=== PATIENT | female | born 1965 | race Caucasian/White ===

== ENCOUNTER 2017-01-02 12:04 | Emergency (ER) | payer SELFPAY ==
[~2017-01-02] VITALS: Ht 157.5 cm; Wt 53.0 kg
[~2017-01-02 12:04] MED LIST: IBUP-1050 PO; ONDA4TAB10 SL
[2017-01-02 12:11] VITALS: TEMP 36.6; Ht 157.5 cm; Wt 53.0 kg
[2017-01-02 13:04] LABS: BASO % 0.6 %; BASO ABS # 0.03 K/uL (0-0.2); COMPLETE YES; EOS % 3.7 %; HEMATOCRIT 39.1 % (37-47); IG% 0.2 %; LYMPH % 47.6 %; LYMPH ABS # 2.42 K/uL (1.2-3.4); MEAN CELL VOLUME 84.1 fL (80-100); MEAN CORPUSCULAR HEMOGLOBIN 29.9 pg (25-34); MEAN CORPUSCULAR HGB CONC 35.5 g/dl (32-36); MEAN PLATELET VOLUME 11.2 fL (7.4-10.4); MONO % 5.7 %; NEUT % 42.2 %; PLATELET COUNT 220 K/uL (130-400); RED BLOOD COUNT 4.65 M/uL (4.2-5.4); WHITE BLOOD COUNT 5.08 K/uL (4.8-10.8)
[2017-01-02 13:05] LABS: PROTHROMBIN TIME (PATIENT) 10.7 SECONDS (9.0-12.0)
[2017-01-02 13:22] LABS: BUN/CREATININE RATIO 8.1 (10-20); CREATININE 0.84 mg/dl (0.60-1.20); POTASSIUM 3.9 mmol/L (3.5-5.1)
--- NOTE | 2017-01-02 13:47 | DIAGNOSTIC IMAGING REPORT ---
ABDOMINAL ULTRASOUND, RIGHT UPPER QUADRANT HISTORY: Epigastric pain.. COMPARISON: Right upper quadrant ultrasound April 12, [address] of the abdomen and pelvis April 13, 2015. FINDINGS: Liver is sonographically normal. There is no biliary ductal dilatation. No gallstones are identified. The pancreas is sonographically normal. There is no right hydronephrosis. IMPRESSION: No significant abnormality identified within the right upper quadrant. Electronically signed by: Kash Martinez M.D. 01/02/2017 1:45 PM Dictated Date/Time: 01/02/2017 1:44 PM
--- NOTE | 2017-01-02 13:50 | DIAGNOSTIC IMAGING REPORT ---
LEFT BREAST ULTRASOUND CLINICAL HISTORY: Left breast pain and burning. COMPARISON STUDY: No previous studies for comparison. FINDINGS: Sonography of the left breast revealed no mass or fluid collection. There were prominent ducts within the left breast at the 3:00 position. IMPRESSION: 1. No left breast abscess. No left breast mass identified by sonography. 2. Prominent ducts within the left breast at the 3:00 position, a nonspecific finding. Follow-up nonemergent diagnostic mammogram and ultrasound are recommended at the breast [facility]. Electronically signed by: Kash Martinez M.D. 01/02/2017 1:48 PM Dictated Date/Time: 01/02/2017 1:45 PM
--- NOTE | 2017-01-02 14:00 | DIAGNOSTIC IMAGING REPORT ---
CHEST 2 VIEWS ROUTINE HISTORY: Left-sided chest pain. COMPARISON: Chest 09/11/2016. FINDINGS: Stable calcified granuloma within the right lung apex. No pleural effusions. No pneumothorax. Cervical spinal fusion hardware. The left lung is clear. The heart is normal in size. IMPRESSION: No significant change compared to the prior study. No acute process. Electronically signed by: Chris Castro M.D. 01/02/2017 1:58 PM Dictated Date/Time: 01/02/2017 1:56 PM
[2017-01-02 14:15] VITALS: BP 108/74; PULSE 71; O2SAT 100
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
[2017-03-27] MEDS ORDERED: DIPH-437 PO (14:03)
== END 2017-01-02 14:17 | disposition home or self-care (01) ==
LOC: C.EDB 12:06 → C.EDC 14:17
DX: N64.4 Mastodynia (principal); R10.10 Upper abdominal pain, unspecified; G89.29 Other chronic pain; K21.9 Gastro-esophageal reflux disease without esophagitis; E87.6 Hypokalemia; Z83.3 Family history of diabetes mellitus; Z82.49 Family history of ischemic heart disease and other diseases of the circulatory system

== ENCOUNTER 2017-03-27 16:53 | Emergency (ER) | payer SELFPAY ==
[~2017-03-27] VITALS: Ht 162.6 cm; Wt 53.8 kg
[~2017-03-27 16:53] MED LIST changes: +DIPH-437 PO; -IBUP-1050 PO; -ONDA4TAB10 SL
[2017-03-27 16:59] VITALS: TEMP 36.8; Ht 162.6 cm; Wt 53.8 kg
[2017-03-27] MEDS ORDERED: RABIES VACCINE (IMOVAX) HUMAN DIPL CELL 2.5 INTER.UNIT/ML SYR IM. ONE (17:30)
[2017-03-27] MEDS ORDERED: RABIES IMMUNE GLOBULIN (HUMAN) 150 INTER.UNIT/ML 2 ML VIAL IM. ONE (17:30)
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
[2017-03-27] MEDS ORDERED: SERT25TA PO (18:23)
[2017-03-27 18:25] VITALS: BP 116/74; PULSE 61; O2SAT 98
== END 2017-03-27 18:26 | disposition home or self-care (01) ==
LOC: C.EDB 16:53 → C.EDD 18:26
DX: Z23 Encounter for immunization (principal); Z20.3 Contact with and (suspected) exposure to rabies; K21.9 Gastro-esophageal reflux disease without esophagitis; G89.29 Other chronic pain; Z90.710 Acquired absence of both cervix and uterus; Z87.440 Personal history of urinary (tract) infections; Z98.890 Other specified postprocedural states

== ENCOUNTER 2017-03-30 14:14 | Emergency (ER) | payer SELFPAY ==
[~2017-03-30] VITALS: Ht 162.6 cm; Wt 54.1 kg
[~2017-03-30 14:14] MED LIST changes: +SERT25TA PO
[2017-03-30 14:41] VITALS: TEMP 36.7; Ht 162.6 cm; Wt 54.1 kg
[2017-03-30] MEDS ORDERED: RABIES VACCINE (IMOVAX) HUMAN DIPL CELL 2.5 INTER.UNIT/ML SYR IM. ONE (15:00)
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
[2017-03-30 15:44] VITALS: BP 109/77; PULSE 66; O2SAT 99
== END 2017-03-30 15:45 | disposition home or self-care (01) ==
LOC: C.EDB 14:15 → C.EDD 15:45
DX: Z23 Encounter for immunization (principal); Z20.3 Contact with and (suspected) exposure to rabies

== ENCOUNTER 2017-08-17 15:35 | Emergency (ER) | payer SELFPAY ==
[~2017-08-17] VITALS: Ht 162.6 cm; Wt 55.8 kg
[2017-08-17 15:39] VITALS: TEMP 36.9; Ht 162.6 cm; Wt 55.8 kg
[2017-08-17] MEDS ORDERED: FENTANYL CITRATE INJ 50 MCG/1 ML 2 ML VIAL IV STA (16:03)
[2017-08-17 16:16] VITALS: O2SAT 100
[2017-08-17 16:16] LABS: BASO % 0.6 %; BASO ABS # 0.04 K/uL (0-0.2); COMPLETE YES; EOS % 2.9 %; HEMATOCRIT 40.6 % (37-47); IG% 0.1 %; LYMPH % 39.7 %; LYMPH ABS # 2.72 K/uL (1.2-3.4); MEAN CELL VOLUME 85.8 fL (80-100); MEAN CORPUSCULAR HEMOGLOBIN 29.6 pg (25-34); MEAN CORPUSCULAR HGB CONC 34.5 g/dl (32-36); MEAN PLATELET VOLUME 11.2 fL (7.4-10.4); MONO % 7.7 %; PLATELET COUNT 226 K/uL (130-400); RED BLOOD COUNT 4.73 M/uL (4.2-5.4); WHITE BLOOD COUNT 6.85 K/uL (4.8-10.8)
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
[2017-08-17 16:35] LABS: BUN/CREATININE RATIO 14.6 (10-20); CALCIUM 8.8 mg/dl (8.5-10.1); CREATININE 0.84 mg/dl (0.60-1.20); POTASSIUM 3.4 mmol/L (3.5-5.1)
--- NOTE | 2017-08-17 17:15 | DIAGNOSTIC IMAGING REPORT ---
CHEST 2 VIEWS ROUTINE CLINICAL HISTORY: 51 years-old Female presenting with CHEST PAIN. TECHNIQUE: PA and lateral views of the chest were obtained. COMPARISON: 01/02/2017. FINDINGS: Atherosclerosis of aortic arch. Cardiac silhouette normal in size. Unchanged nodular density in the right upper lobe near the apex likely calcified granuloma. No new focal infiltrate. No pleural effusion or pneumothorax. Cervical fusion hardware noted. Slight exaggeration of normal thoracic kyphosis without a focal compression deformity. Upper abdomen normal. IMPRESSION: 1. No acute cardiopulmonary disease. Electronically signed by: Abdirahman Michel M.D. 08/17/2017 5:14 PM Dictated Date/Time: 08/17/2017 5:13 PM
[2017-08-17] MEDS ORDERED: KETOROLAC TROMETHAMINE 30 MG/ML VIAL IV STA (18:05)
[2017-08-17 20:56] VITALS: BP 124/87; PULSE 66; O2SAT 98
== END 2017-08-17 20:55 | disposition home or self-care (01) ==
LOC: C.EDB 15:36 → C.EDA 20:55
DX: R07.89 Other chest pain (principal); K21.9 Gastro-esophageal reflux disease without esophagitis; G89.29 Other chronic pain; Z87.828 Personal history of other (healed) physical injury and trauma; Z87.440 Personal history of urinary (tract) infections; Z90.710 Acquired absence of both cervix and uterus; Z98.890 Other specified postprocedural states; Z83.3 Family history of diabetes mellitus; Z82.49 Family history of ischemic heart disease and other diseases of the circulatory system

== ENCOUNTER 2017-11-09 09:15 | Observation (INO) | payer BC ==
[~2017-11-09] VITALS: Ht 162.6 cm; Wt 54.3 kg
[2017-11-09] MEDS ORDERED: SODIUM CHLORIDE 0.9% 1000ML 1,000 ML IV SCH (09:48)
[2017-11-09 09:56] LABS: BASO % 0.5 %; BASO ABS # 0.03 K/uL (0-0.2); EOS % 2.3 %; EOS ABS # 0.15 K/uL (0-0.5); HEMATOCRIT 40.4 % (37-47); HEMOGLOBIN 14.1 g/dL (12.0-16.0); IG# 0.01 K/uL (0.00-0.02); LYMPH % 38.2 %; LYMPH ABS # 2.49 K/uL (1.2-3.4); MEAN CELL VOLUME 86.3 fL (80-100); MEAN CORPUSCULAR HEMOGLOBIN 30.1 pg (25-34); MEAN CORPUSCULAR HGB CONC 34.9 g/dl (32-36); MEAN PLATELET VOLUME 11.3 fL (7.4-10.4); MONO % 7.2 %; MONO ABS # 0.47 K/uL (0.11-0.59); NEUT % 51.6 %; NEUT ABS # 3.37 K/uL (1.4-6.5); PLATELET COUNT 215 K/uL (130-400); RED CELL DISTRIBUTION WIDTH CV 12.5 % (11.5-14.5); RED CELL DISTRIBUTION WIDTH SD 39.3 fL (36.4-46.3); WHITE BLOOD COUNT 6.52 K/uL (4.8-10.8)
--- NOTE | 2017-11-09 10:01 | DIAGNOSTIC IMAGING REPORT ---
CT HEAD WITHOUT CONTRAST (CT) CLINICAL HISTORY: Stroke COMPARISON STUDY: 07/16/2016 TECHNIQUE: Axial CT of the brain is performed from the vertex to the skull base. IV contrast was not administered for this examination. A dose lowering technique was utilized adhering to the principles of ALARA. CT DOSE: 537.48 mGy.cm FINDINGS: No intra or extra-axial mass lesions are visualized. There is no CT evidence of acute cortical infarction. There is no evidence of midline shift. There is no acute hemorrhage. No calvarial fractures are visualized. There is a stable punctate calcification within the left periventricular white matter There is no evidence of pathologic ventricular dilatation. There is no evidence of acute sinusitis IMPRESSION: No acute intracranial findings Electronically signed by: Arpit Arguelles M.D. 11/09/2017 10:00 AM Dictated Date/Time: 11/09/2017 9:58 AM
--- NOTE | 2017-11-09 10:11 | DIAGNOSTIC IMAGING REPORT ---
CHEST ONE VIEW PORTABLE CLINICAL HISTORY: Stroke COMPARISON STUDY: 08/17/2017 FINDINGS: The cardiac and mediastinal contours are normal. There is no evidence of focal pulmonary consolidation. There is no evidence of failure. No pleural effusions are visualized.[ There is a stable 6 mm right apical granuloma IMPRESSION: No active disease in the chest. Electronically signed by: Arpit Arguelles M.D. 11/09/2017 10:09 AM Dictated Date/Time: 11/09/2017 10:09 AM
[2017-11-09 10:13] LABS: BLOOD UREA NITROGEN 9 mg/dl (7-18); CALCIUM 9.1 mg/dl (8.5-10.1); CARBON DIOXIDE 29 mmol/L (21-32); CREATININE 0.81 mg/dl (0.60-1.20); GLUCOSE 71 mg/dl (70-99); POTASSIUM 3.5 mmol/L (3.5-5.1); SODIUM 143 mmol/L (136-145)
[2017-11-09] MEDS ORDERED: OPTIRAY 320 IV PRN (10:15)
[2017-11-09] MEDS ORDERED: DIPH-437 PO (10:30)
--- NOTE | 2017-11-09 10:49 | DIAGNOSTIC IMAGING REPORT ---
CT ANGIOGRAM OF THE BRAIN; CT ANGIOGRAM OF THE NECK CLINICAL HISTORY: Strokelike symptoms. COMPARISON STUDY: Unenhanced CT of the brain dated 11/09/2017. CT scan of the cervical spine dated 07/16/2016. Thyroid ultrasound dated 11/15/2013. TECHNIQUE: Following the IV administration of 120 of Optiray 320, CT angiogram of the head and neck was performed from the aortic arch to the vertex. Images are reviewed in the axial, sagittal, and coronal planes. 3-D MIPS images are created and assessed. IV contrast was administered without complication. All measurements were calculated based on NASCET criteria. A dose lowering technique was utilized adhering to the principles of ALARA. CT DOSE: 514.65 mGy.cm FINDINGS: Brain parenchyma: The brain parenchyma is normal in appearance. There is no hemorrhage, mass effect, or evidence of acute territorial ischemia by CT criteria. There is no evidence of enhancing mass lesion on these angiographic phase images. The ventricles, sulci, and cisterns are normal in configuration. Sánchez-white matter differentiation is preserved. No extra-axial fluid collection is seen. Thoracic aorta: Visualized portions of the thoracic aorta are normal in caliber. The aortic arch demonstrates standard 3-vessel anatomy. Right carotid arterial system: The right common carotid artery is widely patent, as are the right internal and external carotid arteries. Left carotid arterial system: The left common carotid artery is widely patent, as are the left internal and external carotid arteries. Vertebral arteries: Widely patent bilaterally and codominant. Subclavian arteries: Widely patent bilaterally. Intracranial vasculature: The internal carotid arteries are patent at the skull base, as are the anterior and middle cerebral arteries bilaterally. The vertebrobasilar system and posterior cerebral arteries are widely patent. The vertebral arteries are codominant. There is no aneurysm, high-grade stenosis, or focal vessel cut off seen throughout the intracranial circulation. Jugular veins: Widely patent bilaterally. Dural sinuses: Patent. Lung apices: Calcified granulomas are seen in the right upper lobe. Partially visualized upper lobe lung parenchyma otherwise appears clear. Soft tissues: The visualized pharyngeal soft tissues are normal in appearance noting angiographic phase technique. The oropharyngeal airway appears widely patent. Bilateral low-attenuation thyroid nodules measure up to 2.2 cm. The salivary glands are normal in appearance. No cervical lymphadenopathy is seen. Skeletal structures: The skeletal structures are osteopenic. The calvarium is within normal limits. The cervical spine appears intact noting multilevel spondylosis. Change from anterior fusion is seen at C4-C5. Sinuses and mastoids: The paranasal sinuses are clear. The mastoid air cells are well pneumatized. IMPRESSION: 1. There is no evidence of hemorrhage, mass effect, or acute territorial ischemia by CT criteria. 2. Unremarkable CT angiogram of the head. 3. Unremarkable CT angiogram of the neck. Electronically signed by: Mu Curtis M.D. 11/09/2017 10:47 AM Dictated Date/Time: 11/09/2017 10:39 AM
[2017-11-09] MEDS ORDERED: ASPIRIN 324 MG CHEW PO STA (10:58)
[2017-11-09] MEDS ORDERED: ACETAMINOPHEN 325 MG TAB PO PRN (11:15)
[2017-11-09] MEDS ORDERED: NITROGLYCERIN 0.4 MG SL PER TAB CHARGE SL PRN (11:15)
--- NOTE | 2017-11-09 11:26 | History and Physical ---
History & Physical Date & Time of Service: Nov 09, 2017 at 11:26 . Chief Complaint: dizzy, high blood pressure, left sided weakness and numbness, chest pain . Primary Care Physician: Abdirahman Petty M.D. History of Present Illness Source: patient, family, clinic records, hospital records 52-year-old female followed by Dr. Kendall. She enjoys relatively good health except for problems noted below. She has been feeling "dizzy" over the past few days. She denies vertigo or lightheadedness; states that her head feels funny and she has some left frontal pressure. Recent cold symptoms with nasal congestion, but no fever, pharyngitis, cough. Dizziness was worse this morning upon awakening. She went to work and continued to feel poorly. Her blood pressure was checked by a fellow employee and was noted to be 183/90. She felt confused and dialed a wrong phone number when she tried to call someone for help. Came to the ED for evaluation. Experienced some mild left-sided weakness and numbness. Her vision was blurred this morning; no diplopia. No other focal neurologic symptoms. Upon questioning, she also experienced some chest pain this morning. Chest pain described as left sided chest pressure associated with mild dyspnea. It did not radiate. No associated diaphoresis, nausea, vomiting. She did not take any medications for her symptoms. . Past Medical/Surgical History Medical Problems: Chronic low back pain Status: Chronic GERD (gastroesophageal reflux disease) Status: Chronic Surgical Problems: Status post appendectomy Status: Chronic Status post cervical spinal fusion Status: Chronic Status post hysterectomy Status: Chronic Status post Jeny fundoplication Status: Chronic . Family History FATHER Coronary artery disease MOTHER Cancer Diabetes mellitus BROTHER Coronary artery disease Social History Smoking Status: Never Smoker Alcohol Use: none Drug Use: none Marital Status: Housing status: lives with family Occupational Status: unemployed Immunizations History of Influenza Vaccine: Unknown History of Tetanus Vaccine?: Unknown History of Pneumococcal: Unknown History of Hepatitis B Vaccine: Unknown Hepatitis Immunization Date: Oct 17, 2010 Multi-Drug Resistant Organisms History of MDRO: No Allergies Coded Allergies: Morphine (Verified Allergy, Intermediate, RASH, 08/17/17) Nitroglycerin (Verified Adverse Reaction, Intermediate, SEVERELY LOW BLOOD PRESSURE, 11/09/17) Home Medications Scheduled Acetaminophen/Diphenhydramine (Tylenol Pm), 1 TAB PO HS Review of Systems Constitutional: + weight loss (patient uncertain of degree of weight loss), No fever Eyes: + problem reported (Blurred vision), No diplopia ENT: + problem reported (No vertical), No sore throat Respiratory: No cough, No shortness of breath Cardiovascular: + problem reported (As noted above in the HPI) Abdomen: No pain, No nausea, No vomiting, No diarrhea, No GI bleeding Musculoskeletal: + joint pain (Chronic back pain), No muscle pain Genitourinary - Female: No dysuria, No hematuria Neurologic: + memory loss, + numbness/tingling Endocrine: + excessive urination, No excessive thirst Hematologic / Lymphatic: + abnormal bleeding/bruising (Bruises easily), No swollen lymph nodes Integumentary: No rash, No new/changing skin lesions Physical Exam Vital Signs Date Time Temp Pulse Resp B/P (MAP) Pulse Ox O2 Delivery O2 Flow Rate FiO2 11/09/17 10:45 88 16 122/78 97 Room Air 11/09/17 10:35 92 18 127/78 98 Room Air 11/09/17 10:27 96 18 135/79 99 Room Air 11/09/17 10:09 92 18 143/83 96 Room Air 11/09/17 09:38 78 11/09/17 09:24 36.6 80 20 124/73 100 Room Air General Appearance: no apparent distress, + thin Head: normocephalic, atraumatic Eyes: normal inspection, PERRL, EOMI, sclerae normal, + pertinent finding ( Conjunctivae normal) ENT: normal ENT inspection, hearing grossly normal, pharynx normal, + pertinent finding (Upper and lower dentures) Neck: supple, no adenopathy, no carotid bruits, trachea midline, + thyroid abnormalities (Thyroid slightly enlarged, no nodules) Respiratory/Chest: lungs clear (To auscultation and percussion), no respiratory distress Cardiovascular: regular rate, rhythm, no edema, no gallop, no JVD, no murmur, normal peripheral pulses (Radial and pedal pulses intact and symmetric) Abdomen/GI: normal bowel sounds, non tender, soft, no organomegaly Extremities/Musculoskelatal: normal inspection, no calf tenderness 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 (PERRL, EOMI, no facial palsy, no dysarthria), no motor/sensory deficits (Motor strength upper and lower extremities 5/5 at time of my assessment), alert, + disoriented (Cannot state the year), + pertinent finding (Patellar DTRs hyperreflexic bilaterally; plantar reflexes downgoing) Skin: normal color, warm/dry Lymphatic: no adenopathy Diagnostics Laboratory Results Results Past 24 Hours Test 11/09/17 09:50 Range/Units White Blood Count 6.52 4.8-10.8 K/uL Red Blood Count 4.68 4.2-5.4 M/uL Hemoglobin 14.1 12.0-16.0 g/dL Hematocrit 40.4 37-47 % Mean Corpuscular Volume 86.3 80-100 fL Mean Corpuscular Hemoglobin 30.1 25-34 pg Mean Corpuscular Hemoglobin Concent 34.9 32-36 g/dl Platelet Count 215 130-400 K/uL Mean Platelet Volume 11.3 7.4-10.4 fL Neutrophils (%) (Auto) 51.6 % Lymphocytes (%) (Auto) 38.2 % Monocytes (%) (Auto) 7.2 % Eosinophils (%) (Auto) 2.3 % Basophils (%) (Auto) 0.5 % Neutrophils # (Auto) 3.37 1.4-6.5 K/uL Lymphocytes # (Auto) 2.49 1.2-3.4 K/uL Monocytes # (Auto) 0.47 0.11-0.59 K/uL Eosinophils # (Auto) 0.15 0-0.5 K/uL Basophils # (Auto) 0.03 0-0.2 K/uL RDW Standard Deviation 39.3 36.4-46.3 fL RDW Coefficient of Variation 12.5 11.5-14.5 % Immature Granulocyte % (Auto) 0.2 % Immature Granulocyte # (Auto) 0.01 0.00-0.02 K/uL Prothrombin Time 10.4 9.0-12.0 SECONDS Prothromb Time International Ratio 1.0 0.9-1.1 Activated Partial Thromboplast Time 24.0 21.0-31.0 SECONDS Partial Thromboplastin Ratio 0.9 Sodium Level 143 136-145 mmol/L Potassium Level 3.5 3.5-5.1 mmol/L Chloride Level 107 98-107 mmol/L Carbon Dioxide Level 29 21-32 mmol/L Anion Gap 6.0 3-11 mmol/L Blood Urea Nitrogen 9 7-18 mg/dl Creatinine 0.81 0.60-1.20 mg/dl Est Creatinine Clear Calc Drug Dose 70.2 ml/min Estimated GFR () 96.8 Estimated GFR (Non- 83.5 BUN/Creatinine Ratio 11.3 10-20 Random Glucose 71 70-99 mg/dl Calcium Level 9.1 8.5-10.1 mg/dl Magnesium Level 2.0 1.8-2.4 mg/dl Troponin I < 0.015 0-0.045 ng/ml Diagnostic Radiology Chest x-ray showed a stable 6 mm granuloma in the right apex, otherwise unremarkable. CT of head without contrast was negative. CT angiogram of intracranial and cervical vessels unremarkable. . EKG EKG performed at 0938 reviewed and demonstrated normal sinus rhythm at 76/minute , no acute ST or T-wave abnormalities. EKG performed at 1102 reviewed and demonstrated normal sinus rhythm at 82/minute , no acute ST or T-wave abnormalities. . Impression Assessment and Plan LEFT-SIDED WEAKNESS / PARESTHESIAE Neuro exam nonfocal at time of admission. CT head negative. CTA neck and intracranial vessels unremarkable. Check MRI brain and echo. Monitor for arrhythmias. Check lipid profile. ASA. 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 CHEST PAIN No acute EKG changes. Troponin in ED negative. Check serial troponins. VTE PROPHYLAXIS Low-moderate risk for VTE. SQ enoxaparin. Ambulate. DISPOSITION Expected discharge to home. Family Medicine follow-up with Dr. Kendall. . VTE Prophylaxis Risk Level: Moderate Given or contraindicated: Enoxaparin (Lovenox)SQ
[2017-11-09] MEDS ORDERED: PHARMACIST DISCHARGE MED REC CONSULT PRN (11:30)
[2017-11-09 12:06] VITALS: O2SAT 97; Ht 162.6 cm; Wt 54.3 kg
[2017-11-09 12:31] VITALS: O2SAT 98
[2017-11-09 13:00] VITALS: BP 129/84; PULSE 75; TEMP 36.7; O2SAT 99
[2017-11-09] MEDS ORDERED: LORAZEPAM 2 MG/ML 1 ML VIAL ONE (13:25)
[2017-11-09] MEDS ORDERED: ASPIRIN 81 MG CHEW PO ONE (13:30)
[2017-11-09] MEDS ORDERED: LORAZEPAM 2 MG/ML 1 ML VIAL IV PRN (13:30)
[2017-11-09] MEDS ORDERED: LORAZEPAM 2 MG/ML 1 ML VIAL IV ONE (13:30)
[2017-11-09] MEDS ORDERED: NURSING VERBAL MED ORDER ONE (13:30)
[2017-11-09] MEDS ORDERED: LORAZEPAM INJ 0.5 MG in SYRINGE 0.25 ML IV PRN (13:30)
[2017-11-09] MEDS ORDERED: LORAZEPAM INJ 0.5 MG in SYRINGE 0.25 ML IV ONE (13:30)
[2017-11-09] MEDS ORDERED: IV FLUIDS COMPLETED PRN (14:00)
--- NOTE | 2017-11-09 14:19 | DIAGNOSTIC IMAGING REPORT ---
MRI OF THE BRAIN WITHOUT CONTRAST CLINICAL HISTORY: left-sided weakness COMPARISON STUDY: CT scan dated 11/09/2017 FINDINGS: Sagittal T1, axial diffusion, proton density and T2 weighted axial, coronal FLAIR, and axial T1-weighted images were acquired. No intra or extra-axial mass lesions are visualized Axial diffusion-weighted images reveal no evidence of acute or subacute infarction. There is no evidence of ventricular dilatation. Proton density T2-weighted and FLAIR images reveal no significant intraparenchymal signal abnormalities. There are no abnormal flow voids. IMPRESSION: Normal MRI of the brain for age Electronically signed by: Arpit Arguelles M.D. 11/09/2017 2:18 PM Dictated Date/Time: 11/09/2017 2:14 PM
[2017-11-09 15:34] VITALS: BP 120/77; PULSE 70; TEMP 36.6; O2SAT 99
--- NOTE | 2017-11-09 15:38 | Neurology Consultation ---
Neurology Consultation Date of Consultation: Nov 09, 2017. Attending Physician: Norberto Richard MD Primary Care Physician: Abdirahman Petty M.D. Reason for Consultation: possible stroke History of Present Illness Source: patient, family, spouse Nancy is a 52 year old female with no significant PMH however she has not been to her PCP for years. She states about 7a this am she was at work and she started to feel dizzy, lightheaded and had left sided numbness, tingling and weakness, and blurred vision. According to her she was also confused because she tried calling her boss and called the wrong person then tried calling her and ended up call her son. 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 denies swallowing issues, current vision change, slurred speech, CP, SOB, abdominal pain, falls. family history of heart disease and HTN, children healthy, brother heart attack and HTN Past Medical/Surgical History Medical Problems: (1) Chronic low back pain Status: Chronic (2) Encounter for prophylactic administration of rabies immune globulin Status: Acute (3) Epigastric pain Status: Acute (4) GERD (gastroesophageal reflux disease) Status: Chronic (5) Left sided chest pain Status: Acute (6) Left-sided chest wall pain Status: Acute (7) Lumbar back pain Status: Acute (8) Mood disorder Status: Chronic (9) Rabies, need for prophylactic vaccination against Status: Acute (10) Rib injury Status: Acute (11) Upper respiratory infection Status: Acute Social History Smoking Status: Never smoker Alcohol Use: none Drug Use: none Marital Status: Housing Status: lives with family Occupation Status: unemployed Allergies Coded Allergies: Morphine (Verified Allergy, Intermediate, RASH, 08/17/17) Nitroglycerin (Verified Adverse Reaction, Intermediate, SEVERELY LOW BLOOD PRESSURE, 11/09/17) Current Inpatient Medications Current Inpatient Medications Medications (Trade) Dose Ordered Sig/Karen Route Start Time Stop Time Status Last Admin Dose Admin Ioversol (Optiray 320) 125 ml UD PRN IV 11/09/17 10:15 11/13/17 10:14 Enoxaparin Sodium (Lovenox Inj) 40 mg HS SC 11/09/17 21:00 12/09/17 20:59 Acetaminophen (Tylenol Tab) 650 mg Q4H PRN PO 11/09/17 11:15 12/09/17 11:14 Nitroglycerin (Nitrostat Tab) 0.4 mg UD PRN SL 11/09/17 11:15 12/09/17 11:14 Aspirin (Ecotrin Tab) 81 mg QAM PO 11/10/17 09:00 12/10/17 08:59 Miscellaneous Information (Pharmacist Discharge Med Rec Consult) 1 ea UD PRN N/A 11/09/17 11:30 12/09/17 11:29 Lorazepam (Ativan Inj) 0.5 mg TODAY PRN IV 11/09/17 13:30 11/09/17 23:59 11/09/17 14:06 0.5 MG Miscellaneous (Iv Fluids Completed) 1 ea PRN PRN N/A 11/09/17 14:00 11/09/18 13:59 Physical Exam Vital Signs (Past 24 Hrs): Date Time Temp Pulse Resp B/P (MAP) Pulse Ox O2 Delivery O2 Flow Rate FiO2 11/09/17 13:00 Room Air 11/09/17 13:00 36.7 75 16 129/84 (99) 99 Room Air 11/09/17 12:31 71 20 108/69 98 Room Air 11/09/17 12:06 97 Room Air 11/09/17 11:23 76 18 132/82 97 Room Air 11/09/17 10:45 88 16 122/78 97 Room Air 11/09/17 10:35 92 18 127/78 98 Room Air 11/09/17 10:27 96 18 135/79 99 Room Air 11/09/17 10:09 92 18 143/83 96 Room Air 11/09/17 09:38 78 11/09/17 09:24 36.6 80 20 124/73 100 Room Air Physical Exam: Constitutional: appearance nourished, healthy and normal Ears, Nose, Mouth and Throat: mucous membranes moist, no injection and skin normal, eyes normal Cardiovascular: normal S-1 and S-2 and regular rate and rhythm Respiratory: clear to auscultation (CTA) and no rales, rhonchi or wheeze Musculoskeletal: no peripheral edema and good distal pulses Skin: no stigmata of neurocutaneous disease noted and normal and intact Eyes: extraocular muscles intact (EOMI) and pupils equal, round and reactive to light (PERRL) NEUROLOGIC EXAMINATION: Mental status: Alert and interactive Oriented [facility], 2018 Oriented to person Speech slight dysarthria Cranial Nerves smile eye brow raise symmetric Reflexes: Deep tendon reflexes were symmetrical and graded 2/5. Plantar responses were flexor. Sensory: cool touch increased on LLE, vibration intact Coordination: finger to nose with no bi pass Gait/Stance: Posture normal. 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, hip flex 5/5, plantar flex ext 5/5 Laboratory Results Past 24 Hours: 11/09/17 09:50 Red Blood Count 4.68, Mean Corpuscular Volume 86.3, Mean Corpuscular Hemoglobin 30.1, Mean Corpuscular Hemoglobin Concent 34.9, Mean Platelet Volume 11.3, Neutrophils (%) (Auto) 51.6, Lymphocytes (%) (Auto) 38.2, Monocytes (%) (Auto) 7.2, Eosinophils (%) (Auto) 2.3, Basophils (%) (Auto) 0.5, Neutrophils # (Auto) 3.37, Lymphocytes # (Auto) 2.49, Monocytes # (Auto) 0.47, Eosinophils # (Auto) 0.15, Basophils # (Auto) 0.03 11/09/17 09:50 Test 11/09/17 09:50 White Blood Count 6.52 K/uL (4.8-10.8) Red Blood Count 4.68 M/uL (4.2-5.4) Hemoglobin 14.1 g/dL (12.0-16.0) Hematocrit 40.4 % (37-47) Mean Corpuscular Volume 86.3 fL (80-100) Mean Corpuscular Hemoglobin 30.1 pg (25-34) Mean Corpuscular Hemoglobin Concent 34.9 g/dl (32-36) Platelet Count 215 K/uL (130-400) Mean Platelet Volume 11.3 fL (7.4-10.4) Neutrophils (%) (Auto) 51.6 % Lymphocytes (%) (Auto) 38.2 % Monocytes (%) (Auto) 7.2 % Eosinophils (%) (Auto) 2.3 % Basophils (%) (Auto) 0.5 % Neutrophils # (Auto) 3.37 K/uL (1.4-6.5) Lymphocytes # (Auto) 2.49 K/uL (1.2-3.4) Monocytes # (Auto) 0.47 K/uL (0.11-0.59) Eosinophils # (Auto) 0.15 K/uL (0-0.5) Basophils # (Auto) 0.03 K/uL (0-0.2) RDW Standard Deviation 39.3 fL (36.4-46.3) RDW Coefficient of Variation 12.5 % (11.5-14.5) Immature Granulocyte % (Auto) 0.2 % Immature Granulocyte # (Auto) 0.01 K/uL (0.00-0.02) Prothrombin Time 10.4 SECONDS (9.0-12.0) Prothromb Time International Ratio 1.0 (0.9-1.1) Activated Partial Thromboplast Time 24.0 SECONDS (21.0-31.0) Partial Thromboplastin Ratio 0.9 Anion Gap 6.0 mmol/L (3-11) Est Creatinine Clear Calc Drug Dose 70.2 ml/min Estimated GFR () 96.8 Estimated GFR (Non- 83.5 BUN/Creatinine Ratio 11.3 (10-20) Calcium Level 9.1 mg/dl (8.5-10.1) Magnesium Level 2.0 mg/dl (1.8-2.4) Troponin I < 0.015 ng/ml (0-0.045) Imaging CT head - No acute intracranial findings CTA head and neck- . There is no evidence of hemorrhage, mass effect, or acute territorial ischemia by CT criteria. Unremarkable CT angiogram of the head. Unremarkable CT angiogram of the neck. MRI brain without-Normal MRI of the brain for age Impression 52 year old female with left sided weakness, numbness tingling, lightheaded Plan 1. MRI without no acute findings 2. CTA head and neck- no acute findings 3. TTE pending read 4. blood pressure in normal range 5. lipid profile -evaluation 6. over night observation 7. aspirin 81 mg started 8. further recommendations to follow I have seen and discussed above patient with Dr Oneyda Medina, neurology Pt seen and examined. Pt felt unwell this am, noted sparkly vision, head pressure, L weakness, numbness. Head pressure resolved, still with residual L weakness.MRI, CTA neg. Exam no abnl of cranial nerves, speech or language. Mild L arm weakness, poss L leg weakness, with L drift without pronation. perhaps min dec left NUBIA. There is decreased temperature sensation on the R arm and leg , but there is decreased PP in L arm and leg. Pt fails to identify the anesthetic hand with interlocked fingers. No dystaxia. Nml gait, arm swiing. Although this pt denies hx of migraine I suspect this is migrainous. TIA is within the differential and vascular mccall and antiplt tx are appropriate. There are non-physiologic features on exam. Will follow with you. CRISTIAN Medina MD
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
[2017-11-09] MEDS ORDERED: ASPIRIN 81 MG CHEW ONE (17:14)
[2017-11-09 19:17] VITALS: BP 96/61; PULSE 71; TEMP 36.7; O2SAT 99
[2017-11-09] MEDS ORDERED: ENOXAPARIN 40 MG/0.4 ML SYR SC SCH (21:00)
[2017-11-09 23:49] VITALS: BP 100/64; PULSE 60; TEMP 36.6; O2SAT 98
[2017-11-10 04:20] VITALS: BP 95/58; PULSE 60; TEMP 36.8; O2SAT 98
[2017-11-10 07:22] VITALS: BP 102/64; PULSE 72; TEMP 36.9; O2SAT 98
--- NOTE | 2017-11-10 08:26 | ECHOCARDIOGRAM REPORT ---
*NOTICE TO RECEIVING [facility] [facility] This information is strictly Confidential and protected under [place] law. [place] law prohibits you from making any further disclosure of this information unless further disclosure is expressly permitted by the written consent of the person to whom it pertains or is authorized by law. A general authorization for the release of medical or other information is not sufficient for this purpose. Hospital accepts no responsibility if the information is made available to any other person, INCLUDING THE PATIENT. Interpretation Summary * Name: MAXIMUS MCKINLEY Study Date: 11/09/2017 02:22 PM BP: 129/84 mmHg * Patient Location: .2T\S\S238\S\2 HR: 60 * : 1965 (M/d/yyyy) Gender: Female Height: 64 in * Age: 52 yrs Ethnicity: [place] Weight: 123 lb * Ordering Physician: Joselito Quach * Referring Physician: UNKNOWN * Performed By: Rebeka Cao RCS * * Reason For Study: STROKE LIKE SYMPTOMS * BSA: 1.6 m2 * -- Conclusions -- * Normal LV chamber size with mild concentric LVH. * Normal LV systolic function, EF 55-60%. * No segmental left ventricular wall motion abnormalities are noted. * Grade II diastolic dysfunction. * Mild tricuspid regurgitation. * Intact interatrial septum. Procedure Details * A complete two-dimensional transthoracic echocardiogram was performed (2D, M-mode, Doppler and color flow Doppler). * A saline contrast injection was performed to assess for cardiac shunting. * The injection was performed through an intravenous line in the right arm. * The attending nurse who injected the saline contrast was OREN RIVERA CPL, RN. * A total of 20 cc of agitated saline was given. Left Ventricle * The left ventricle is normal in size. * There is mild concentric left ventricular hypertrophy. * Left ventricular systolic function is normal. * No segmental left ventricular wall motion abnormalities are noted. * Ejection Fraction = 55-60%. * The left ventricular wall motion is normal. Right Ventricle * The right ventricular cavity size is normal (basal dimension <4.2 cm in right ventricular apical 4-chamber view). * The right ventricular systolic function is normal as assessed by tricuspid annular plane systolic excursion (TAPSE) (normal >1.5 cm). Atria * The left atrial size is normal. * Right atrial size is normal. * The interatrial septum is intact with no evidence for an atrial septal defect. Mitral Valve * The mitral valve is normal in structure and function. Tricuspid Valve * The tricuspid valve anatomy is normal. * There is no tricuspid stenosis. * There is mild tricuspid regurgitation. Aortic Valve * The aortic valve is normal in structure and function. Pulmonic Valve * The pulmonary valve is not well seen, but the Doppler examination is normal without significant regurgitation or stenosis. Great Vessels * The aortic root is normal size. Pericardium/Pleural * There is no pericardial effusion. Left Ventricular Diastolic Function * Diastolic dysfunction, Grade II (pseudonormalization pattern). MMode 2D Measurements and Calculations IVSd 1.0 cm IVSs 1.3 cm LVIDd 2.7 cm LVIDs 2.0 cm LVPWd 0.86 cm LVPWs 1.2 cm IVS/LVPW 1.2 FS 26.0 % EDV(Teich) 28.0 ml ESV(Teich) 13.2 ml EF(Teich) 53.0 % EDV(cubed) 20.5 ml ESV(cubed) 8.3 ml EF(cubed) 59.5 % % IVS thick 30.0 % % LVPW thick 34.5 % LV mass(C)d 64.6 grams LV mass(C)dI 40.6 grams/m\S\2 LV mass(C)s 68.8 grams LV mass(C)sI 43.3 grams/m\S\2 SV(Teich) 14.8 ml SI(Teich) 9.3 ml/m\S\2 SV(cubed) 12.2 ml SI(cubed) 7.7 ml/m\S\2 Ao root diam 2.7 cm Ao root area 5.7 cm\S\2 ACS 1.8 cm LA dimension 2.2 cm LA/Ao 0.82 LVOT diam 1.7 cm LVOT area 2.3 cm\S\2 LVAd ap4 23.7 cm\S\2 LVLd ap4 6.5 cm EDV(MOD-sp4) 67.3 ml EDV(sp4-el) 72.7 ml LVAs ap4 15.0 cm\S\2 LVLs ap4 5.4 cm ESV(MOD-sp4) 33.8 ml ESV(sp4-el) 35.0 ml EF(MOD-sp4) 49.7 % EF(sp4-el) 51.8 % LVAd ap2 25.7 cm\S\2 LVLd ap2 7.6 cm EDV(MOD-sp2) 70.9 ml EDV(sp2-el) 73.7 ml LVAs ap2 18.2 cm\S\2 LVLs ap2 6.7 cm ESV(MOD-sp2) 40.7 ml ESV(sp2-el) 42.0 ml EF(MOD-sp2) 42.5 % EF(sp2-el) 43.1 % LVLd %diff 14.2 % EDV(MOD-bp) 72.3 ml LVLs %diff 19.1 % ESV(MOD-bp) 41.3 ml EF(MOD-bp) 42.9 % SV(MOD-sp4) 33.5 ml SI(MOD-sp4) 21.0 ml/m\S\2 SV(MOD-sp2) 30.2 ml SI(MOD-sp2) 19.0 ml/m\S\2 SV(MOD-bp) 31.0 ml SI(MOD-bp) 19.5 ml/m\S\2 SV(sp4-el) 37.7 ml SI(sp4-el) 23.7 ml/m\S\2 SV(sp2-el) 31.8 ml SI(sp2-el) 20.0 ml/m\S\2 Doppler Measurements and Calculations MV E max sylvie 51.8 cm/sec MV A max sylvie 49.1 cm/sec MV E/A 1.1 MV P1/2t max sylvie 65.1 cm/sec MV P1/2t 100.3 msec MVA(P1/2t) 2.2 cm\S\2 MV dec slope 190.0 cm/sec\S\2 MV dec time 0.23 sec Ao V2 max 102.1 cm/sec Ao max PG 4.2 mmHg Ao max PG (full) 1.2 mmHg PAL(V,A) 1.9 cm\S\2 PAL(V,D) 1.9 cm\S\2 LV V1 max PG 3.0 mmHg LV V1 max 86.8 cm/sec PA V2 max 82.0 cm/sec PA max PG 2.7 mmHg TR max sylvie 206.6 cm/sec
[2017-11-10] MEDS ORDERED: ASPIRIN 81 MG ECTAB PO SCH (09:00)
[2017-11-10 09:09] LABS: HEMOGLOBIN A1C 5.3 % (4.5-5.6)
[2017-11-10 11:28] VITALS: BP 103/67; PULSE 66; TEMP 36.7; O2SAT 98
[2017-11-10] MEDS ORDERED: IBUPROFEN 600 MG TAB PO PRN (11:30)
[2017-11-10 14:57] VITALS: BP 115/73; PULSE 68; TEMP 36.5; O2SAT 98
--- NOTE | 2017-11-10 15:58 | Discharge Instructions ---
Discharge Instructions Date of Service Nov 10, 2017. Admission Reason for Admission: Stroke Like Symptoms Discharge Discharge Diagnosis / Problem: Headache, cva like symptoms Discharge Goals Goal(s): Decrease discomfort, Improve function Activity Recommendations Activity Limitations: resume your previous activity . Instructions / Follow-Up Instructions / Follow-Up FOLLOWUP WITH FAMILY DOCTOR ON Oct AT 2PM Current Hospital Diet Patient's current hospital diet: AHA Diet (Heart Healthy) Discharge Diet Recommended Diet: AHA Diet (Heart Healthy) Pending Studies Studies pending at discharge: no Laboratory Results Hemoglobin A1c Test 11/10/17 06:23 Range/Units Estimated Average Glucose 105 mg/dl Hemoglobin A1c 5.3 4.5-5.6 % Lipid Panel Test 11/10/17 06:23 Range/Units Triglycerides Level 123 0-150 mg/dl Cholesterol Level 195 0-200 mg/dl HDL Cholesterol 64 mg/dl Cholesterol/HDL Ratio 3.0 LDL Cholesterol, Calculated 106 mg/dl Work Instructions Return To Work: after follow-up (after followup on nov 13 2017.) Medical Emergencies . Who to Call and When: Medical Emergencies: If at any time you feel your situation is an emergency, please call 911 immediately. . Non-Emergent Contact Non-Emergency issues call your: Primary Care Provider . . "Provider Documentation" section prepared by Norberto Richard. . VTE Core Measure Inpt VTE Proph given/why not?: Enoxaparin (Lovenox)SQ
[2017-11-10 16:02] VITALS: BP 115/73; PULSE 68; TEMP 36.5; O2SAT 98
--- NOTE | 2017-11-10 16:16 | Neurology Progress Notes ---
Neurology Progress Note Date of Service Nov 10, 2017. Martha Cruz is a 52 year old female with no significant PMH however she has not been to her PCP for years. She states about 7a this am she was at work and she started to feel dizzy, lightheaded and had left sided numbness, tingling and weakness, and blurred vision. According to her she was also confused because she tried calling her boss and called the wrong person then tried calling her and ended up call her son. 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 denies swallowing issues, current vision change, slurred speech, CP, SOB, abdominal pain, falls. family history of heart disease and HTN, children healthy, brother heart attack and HTN Today she states she is still having a headache but it is mild and relieved with motrin. She is no longer having any weakness in arms or legs. Her vision has cleared. Objective Date Time Temp Pulse Resp B/P (MAP) Pulse Ox O2 Delivery O2 Flow Rate FiO2 11/10/17 16:02 36.5 68 18 98 Room Air 11/10/17 14:57 36.5 68 18 115/73 (87) 98 Room Air 11/10/17 12:00 Room Air 11/10/17 11:28 36.7 66 18 103/67 (79) 98 Room Air 11/10/17 08:00 Room Air 11/10/17 07:22 36.9 72 18 102/64 (77) 98 11/10/17 04:20 36.8 60 20 95/58 (70) 98 Room Air 11/10/17 04:00 Room Air 11/10/17 00:02 Room Air 11/09/17 23:49 36.6 60 20 100/64 (76) 98 Room Air 11/09/17 20:00 Room Air 11/09/17 19:17 36.7 71 16 96/61 (73) 99 Room Air Last 24 Hours Test 11/09/17 22:12 11/10/17 06:23 Troponin I < 0.015 ng/ml Estimated Average Glucose 105 mg/dl Hemoglobin A1c 5.3 % Triglycerides Level 123 mg/dl Cholesterol Level 195 mg/dl HDL Cholesterol 64 mg/dl LDL Cholesterol, Calculated 106 mg/dl VLDL Cholesterol, Calculated 25 mg/dl Cholesterol/HDL Ratio 3.0 Imaging: MRI brain- : Normal MRI of the brain for age Exam: Gen: alert NAD PERRLA, EOMI lungs CTA CV RRR no pronator drift bilaterally strength 5/5 bilaterally hand ux consultant biceps triceps, hip flex plantar flex ext finger to nose with no bi pass Current Inpatient Medications Medications (Trade) Dose Ordered Sig/Karen Route Start Time Stop Time Status Last Admin Dose Admin Ioversol (Optiray 320) 125 ml UD PRN IV 11/09/17 10:15 11/13/17 10:14 Enoxaparin Sodium (Lovenox Inj) 40 mg HS SC 11/09/17 21:00 12/09/17 20:59 11/09/17 19:55 40 MG Acetaminophen (Tylenol Tab) 650 mg Q4H PRN PO 11/09/17 11:15 12/09/17 11:14 11/10/17 08:50 650 MG Nitroglycerin (Nitrostat Tab) 0.4 mg UD PRN SL 11/09/17 11:15 12/09/17 11:14 Aspirin (Ecotrin Tab) 81 mg QAM PO 11/10/17 09:00 12/10/17 08:59 11/10/17 08:49 81 MG Miscellaneous (Iv Fluids Completed) 1 ea PRN PRN N/A 11/09/17 14:00 11/09/18 13:59 Ibuprofen (Motrin Tab) 600 mg TID PRN PO 11/10/17 11:30 12/10/17 11:29 11/10/17 13:09 600 MG Impression 52 year old female with left sided weakness, numbness tingling, lightheaded Plan 1. MRI without no acute findings 2. CTA head and neck- no acute findings 3. TTE pending read 4. blood pressure in normal range 5. lipid profile -evaluation 6. over night observation 7. aspirin 81 mg started 8. TIA vs acephalic migraine, would continue aspirin 81 mg and follow up with PCP for further evaluate for medical management. There were some non pathologic findings on exam. follow up with neurology in 2-3 weeks Oneyda Thrasher PAC schedule ok from neurology perspective to discharge to home I have seen and discussed above patient with Dr Oneyda Medina, neurology PT dced, suspect complicated migrainous phenomenon, vs TIA, noting there were nonphysiologic features on exam. Agree with antiplt tx with asa. Will see pt in follow-up. If pt still with neurologic deficit would consider repeat MRI, further work-up, CRISTIAN Medina MD
--- NOTE | 2017-11-10 19:02 | Progress Note ---
Internal Med Progress Note Date of Service: Nov 10, 2017. Provider Documentation: SUBJECTIVE: ambulating ok eating ok has some headache relieved by Motrin wants to go home afebrile OBJECTIVE: Vital Signs-as noted below Exam: General-alert and oriented. Not in distress ENT-normal hearing Neck-no neck masses Lungs-cta b/l no wheezing or crackles Heart-s1 and s2 heard regular rate and rhythm no murmurs Abdomen-soft bowel sounds present non tender no distension Extremities-no edema no erythema Neuro-alert and awake moves extremities non focal Lab data as noted below. ASSESSMENT & PLAN: LEFT-SIDED WEAKNESS / PARESTHESIAE Neuro exam nonfocal at time of admission. CT head negative. CTA neck and intracranial vessels unremarkable. MRI brain unremarkable echo mild lvh and grade 2 diastolic dysfunction otherwise unremarkable ldl 106, hdl 64 appreciate neuro input migraine vs tia neurology advice to d/c on aspirin and followup with neuro in 2-3 weeks CHEST PAIN No acute EKG changes. Troponin in ED negative. negative serial troponin echo normal ef and no wall motion abnormalities asymptomatic today. discharged home Vital Signs: Date Time Temp Pulse Resp B/P (MAP) Pulse Ox O2 Delivery O2 Flow Rate FiO2 11/10/17 16:02 36.5 68 18 98 Room Air 11/10/17 14:57 36.5 68 18 115/73 (87) 98 Room Air 11/10/17 12:00 Room Air 11/10/17 11:28 36.7 66 18 103/67 (79) 98 Room Air 11/10/17 08:00 Room Air 11/10/17 07:22 36.9 72 18 102/64 (77) 98 11/10/17 04:20 36.8 60 20 95/58 (70) 98 Room Air 11/10/17 04:00 Room Air 11/10/17 00:02 Room Air 11/09/17 23:49 36.6 60 20 100/64 (76) 98 Room Air 11/09/17 20:00 Room Air 11/09/17 19:17 36.7 71 16 96/61 (73) 99 Room Air Lab Results: Results Past 24 Hours Test 11/09/17 22:12 11/10/17 06:23 Range/Units Troponin I < 0.015 0-0.045 ng/ml Estimated Average Glucose 105 mg/dl Hemoglobin A1c 5.3 4.5-5.6 % Triglycerides Level 123 0-150 mg/dl Cholesterol Level 195 0-200 mg/dl HDL Cholesterol 64 mg/dl LDL Cholesterol, Calculated 106 mg/dl VLDL Cholesterol, Calculated 25 mg/dl Cholesterol/HDL Ratio 3.0
[2017-11-10] MEDS ORDERED: ASPEC81 PO (19:03)
--- NOTE | 2017-11-10 19:06 | Discharge Summary ---
Discharge Summary Date of Service Nov 10, 2017. Discharge Summary Admission Date: Nov 09, 2017 at 11:36 Discharge Date: Nov 10, 2017 Discharge Disposition: Home Principal Diagnosis: migraine vs tia Secondary Diagnoses/Problems: Chronic low back pain Status: Chronic GERD (gastroesophageal reflux disease) Status: Chronic Procedures: CT HEAD: No acute intracranial findings CXR: No active disease in the chest. CTA HEAD/NECK: 1. There is no evidence of hemorrhage, mass effect, or acute territorial ischemia by CT criteria. 2. Unremarkable CT angiogram of the head. 3. Unremarkable CT angiogram of the neck. BRAIN MRI: Normal MRI of the brain for age ECHO: Normal LV chamber size with mild concentric LVH. * Normal LV systolic function, EF 55-60%. * No segmental left ventricular wall motion abnormalities are noted. * Grade II diastolic dysfunction. * Mild tricuspid regurgitation. * Intact interatrial septum. Consultations: NEUROLOGY Medication Reconciliation New Medications: Aspirin (Aspirin EC Low Dose) 81 Mg Ectab 81 MG PO DAILY for 30 Days, #30 TAB 1 Refill Continued Medications: Acetaminophen/Diphenhydramine (Tylenol Pm) 500 Mg/25 Mg Tab 1 TAB PO HS, TAB Admission Information HPI (per Admitting provider): 52-year-old female followed by Dr. Kendall. She enjoys relatively good health except for problems noted below. She has been feeling "dizzy" over the past few days. She denies vertigo or lightheadedness; states that her head feels funny and she has some left frontal pressure. Recent cold symptoms with nasal congestion, but no fever, pharyngitis, cough. Dizziness was worse this morning upon awakening. She went to work and continued to feel poorly. Her blood pressure was checked by a fellow employee and was noted to be 183/90. She felt confused and dialed a wrong phone number when she tried to call someone for help. Came to the ED for evaluation. Experienced some mild left-sided weakness and numbness. Her vision was blurred this morning; no diplopia. No other focal neurologic symptoms. Upon questioning, she also experienced some chest pain this morning. Chest pain described as left sided chest pressure associated with mild dyspnea. It did not radiate. No associated diaphoresis, nausea, vomiting. She did not take any medications for her symptoms. . Physical Exam (per Admitting): General Appearance: no apparent distress, + thin Head: normocephalic, atraumatic Eyes: normal inspection, PERRL, EOMI, sclerae normal, + pertinent finding ( Conjunctivae normal) ENT: normal ENT inspection, hearing grossly normal, pharynx normal, + pertinent finding (Upper and lower dentures) Neck: supple, no adenopathy, no carotid bruits, trachea midline, + thyroid abnormalities (Thyroid slightly enlarged, no nodules) Respiratory/Chest: lungs clear (To auscultation and percussion), no respiratory distress Cardiovascular: regular rate, rhythm, no edema, no gallop, no JVD, no murmur , normal peripheral pulses (Radial and pedal pulses intact and symmetric) Abdomen/GI: normal bowel sounds, non tender, soft, no organomegaly Extremities/Musculoskelatal: normal inspection, no calf tenderness Neurologic/Psych: train brakeman II-XII nml as tested (PERRL, EOMI, no facial palsy, no dysarthria), no motor/sensory deficits (Motor strength upper and lower extremities 5/5 at time of my assessment), alert, + disoriented (Cannot state the year), + pertinent finding (Patellar DTRs hyperreflexic bilaterally; plantar reflexes downgoing) Skin: normal color, warm/dry Lymphatic: no adenopathy Hospital Course LEFT-SIDED WEAKNESS / PARESTHESIAE Neuro exam nonfocal at time of admission. CT head negative. CTA neck and intracranial vessels unremarkable. MRI brain unremarkable echo mild lvh and grade 2 diastolic dysfunction otherwise unremarkable ldl 106, hdl 64 appreciate neuro input migraine vs tia neurology advice to d/c on aspirin and followup with neuro in 2-3 weeks CHEST PAIN No acute EKG changes. Troponin in ED negative. negative serial troponin echo normal ef and no wall motion abnormalities asymptomatic today. discharged home Total time spent on discharge = 35MINUTES This includes examination of the patient, discharge planning, medication reconciliation, and communication with other providers. Discharge Instructions Discharge Instructions Date of Service Nov 10, 2017. Admission Reason for Admission: Stroke Like Symptoms Discharge Discharge Diagnosis / Problem: Headache, cva like symptoms Discharge Goals Goal(s): Decrease discomfort, Improve function Activity Recommendations Activity Limitations: resume your previous activity . Instructions / Follow-Up Instructions / Follow-Up FOLLOWUP WITH FAMILY DOCTOR ON Oct AT 2PM Current Hospital Diet Patient's current hospital diet: AHA Diet (Heart Healthy) Discharge Diet Recommended Diet: AHA Diet (Heart Healthy) Pending Studies Studies pending at discharge: no Laboratory Results Hemoglobin A1c Test 11/10/17 06:23 Range/Units Estimated Average Glucose 105 mg/dl Hemoglobin A1c 5.3 4.5-5.6 % Lipid Panel Test 11/10/17 06:23 Range/Units Triglycerides Level 123 0-150 mg/dl Cholesterol Level 195 0-200 mg/dl HDL Cholesterol 64 mg/dl Cholesterol/HDL Ratio 3.0 LDL Cholesterol, Calculated 106 mg/dl Work Instructions Return To Work: after follow-up (after followup on nov 13 2017.) Medical Emergencies . Who to Call and When: Medical Emergencies: If at any time you feel your situation is an emergency, please call 911 immediately. . Non-Emergent Contact Non-Emergency issues call your: Primary Care Provider . . "Provider Documentation" section prepared by Norberto Richard. . VTE Core Measure Inpt VTE Proph given/why not?: Enoxaparin (Lovenox)SQ
== END 2017-11-10 17:00 | disposition home or self-care (01) ==
LOC: C.EDB 09:16 → C.2T 11:36 → ENRESERV 11:45
PROVIDERS: ADMIT Hospitalist; ATTEND Internal Medicine
DX: R51 Headache (principal); R53.1 Weakness; R20.0 Anesthesia of skin; R07.9 Chest pain, unspecified; K21.9 Gastro-esophageal reflux disease without esophagitis; Z88.5 Allergy status to narcotic agent; Z90.49 Acquired absence of other specified parts of digestive tract; Z98.1 Arthrodesis status; Z90.710 Acquired absence of both cervix and uterus; Z87.440 Personal history of urinary (tract) infections; Z82.49 Family history of ischemic heart disease and other diseases of the circulatory system; Z83.3 Family history of diabetes mellitus

== ENCOUNTER → 2018-05-13 | Outpatient (CLI) | payer BC ==
[~2018-05-13] MED LIST changes: +ASPI-320 PO; -SERT25TA PO
--- NOTE | 2018-05-13 12:48 | DIAGNOSTIC IMAGING REPORT ---
VIDEO SWALLOW CLINICAL HISTORY: Dysphagia. Globus sensation. COMPARISON STUDY: Upper GI series December 31, 2016. Fluoroscopy time: 1.7 minutes. FINDINGS: Cine fluoroscopy was performed. Note is made of an anterior cervical spine discectomy and fusion. There was no aspiration with thin liquids, nectar thick liquids, pudding or crackers with paste. Swallowing mechanism was intact. Laryngeal elevation and epiglottic inversion were normal. IMPRESSION: 1. Intact swallowing mechanism. No tracheal aspiration. 2. Full recommendations by speech pathology to follow. Electronically signed by: Kash Martinez M.D. 05/13/2018 12:47 PM Dictated Date/Time: 05/13/2018 12:45 PM
--- NOTE | 2018-05-13 15:23 | SWALLOWING EVALUATION ---
HISTORY: This 52 year old woman was referred for a video swallow study at [facility] in order to rule out aspiration and identify the safest consistencies for optimal oral intake. The patient is reporting some swallowing difficulty where a globus sensation is noted and often feels as though food can become stuck in her throat. She will take a drink to help clear this sensation. She reports having the most difficulty swallowing breads and red meats such as steak, and that she feels full quickly. PMH is significant for: Abdominal pain, chronic back pain, GERD, dizziness, stroke like symptoms, and mood disorder. Previous Upper GI completed in 12/2016 (please refer to full report for details) noted a narrowed gastroesophageal junction. The patient reported she had hiatal hernia repair in the past as well as surgery to the cervical spine. Current diet is regular. PROCEDURE: The patient was seen in the Radiology Department of [facility] for the VFSS. Cursory examination of the oral cavity revealed the patient to have upper and lower dentition in good condition. Strength and ROM of the articulators was wnl. The patient was seated upright on a stool and was viewed in the Lateral and the Anterior-Posterior (A-P) planes. Volitional phonation exercises completed in the A-P plane revealed bilateral vocal fold movement. Vocal intensity was wnl. In the lateral plane, the patient was given the following boluses: 1 tsp. thin liquid barium x 2, single swallow thin liquid barium self-presented from a cup, serial swallows of thin liquid barium self-presented via straw, 1 tsp. nectar-thick liquid barium, single swallow nectar-thick liquid barium self-presented from a cup, 1 tsp. barium pudding, and 1/2 club cracker coated in barium pudding. The patient was then repositioned into the A-P plane and given the following boluses: 1 tsp. barium pudding. RESULTS: Oral Stage: Lip closure was adequate. The patient was able to maintain a cohesive liquid bolus in the oral cavity during the liquid bolus hold task. Mastication was timely and efficient. Lingual motion for bolus transport was brisk. There was retention lining the tongue and palate after the initial swallow. The initiation of the pharyngeal swallow was delayed and occurred when the bolus head reached the pyriforms. Pharyngeal Stage: Soft palate elevation was complete. Laryngeal elevation revealed complete superior movement of the thyroid cartilage with complete approximation of the arytenoids to the epiglottic base. Anterior hyoid excursion was partially reduced. Epiglottic deflection was complete. Laryngeal vestibular closure was complete. The pharyngeal stripping wave was present and complete. Pharyngeal contraction was complete. There was partial distention and duration of the opening to the pharyngoesophageal segment (PES). Tongue base retraction was partially reduced with a trace column of contrast located between the tongue base and pharyngeal wall during the swallow. There was trace retention located in the valleculae and pyriforms after the swallow. There was no evidence of laryngeal penetration or aspiration for this study. The patient did not have any significant retention present in the pharynx after the swallow was complete. Esophageal stage: There was mild retention in the mid esophagus. A liquid wash did not assist to clear this. Of note, the hardware present appeared to impinge slightly into the upper esophagus. There was also a noted prominent cricopharyngeus. While all bolus were able to pass through this area, transit was slowed and this is suspected to be contributing to the patient's reports of retention and globus sensation while eating. These findings overall are suggestive of esophageal dysmotility. SUMMARY/RECOMMENDATIONS: This patient presents with normal oropharyngeal swallowing mechanics. She presents with s/s of esophageal dysfunction. The following is recommended: 1. Regular diet "SLIPPERY", thin liquids. Choose foods that are moist, loose, slippery; avoid foods that are doughy, thick, dry (e.g., soft breads, thick meat, etc.). Add condiments to foods such as sauce or gravy to assist in keeping foods moist 2. Aspiration and GERD precautions: FULLY UPRIGHT for meals and for 30 minutes after meals; head of bed at least 30-degrees at all times. Straws OK. 3. Safe swallow strategies: Rest breaks during meals. Small frequent meals. Alternate solids and liquids as needed. 4. Consider follow up with a GI specialist for management for suspected esophageal dysfunction (medication adjustments, further testing as needed) as appropriate. A summary of the results and recommendations was discussed with the patient immediately following the study with verbal understanding. Also provided both written and verbal information regarding a "slippery" diet with verbal understanding to this. Thank you for referral of this patient. Please contact me at if any additional information is needed.
== END | disposition home or self-care (01) ==
LOC: C.RAD 11:04
PROVIDERS: ATTEND Otolaryngology
DX: R13.10 Dysphagia, unspecified (principal); E04.2 Nontoxic multinodular goiter; K22.4 Dyskinesia of esophagus

== ENCOUNTER 2020-02-08 10:08 | Observation (INO) ==
[2020-02-08] MEDS ORDERED: KETOROLAC TROMETHAMINE 15 MG/ML VIAL IV STA (10:25)
[2020-02-08] MEDS ORDERED: SODIUM CHLORIDE 0.9% 1000ML 1,000 ML IV ONE (10:25)
[2020-02-08] MEDS ORDERED: ONDANSETRON INJ 2 MG/ML 2 ML VIAL IV STA (10:25)
--- NOTE | 2020-02-08 10:30 | Emergency Department Note ---
Impression & Plan RUQ abdominal pain, Diarrhea, Nausea ED Provider Note NAME: MAXIMUS MCKINLEY AGE: 54 SEX: F : 1965 ARRIVES VIA: Walk-In INFORMANT: [Patient] ED PROVIDER(S): [Mu Merritt MD] CHIEF COMPLAINT: Right upper quadrant abdominal pain HISTORY OF PRESENT ILLNESS: The patient is a 54-year-old female who presents to the ER with right upper quadrant abdominal pain since yesterday toward the latter half of the day. The patient states the pain was mild yesterday and seemed to get better with a little bit of diarrhea. This morning, the pain was mild. About 2.5 hours ago, the pain became more severe and she now rates it as a 7/10. It is constant and radiates to the back. Eating makes it slightly worse, sitting still makes it better. She has had nausea no vomiting. No more diarrhea. No cough or cold or shortness of breath. She has not had fever. There has been no trauma. Of note, the patient has had an appendectomy and hysterectomy. She also has had some hiatal hernia surgery. She still has her gallbladder. REVIEW OF SYSTEMS: See HPI for pertinent positives and negatives. A total of ten systems were reviewed and were otherwise negative. PMHx/PSHx: See Below SOCIAL HISTORY: See Below. PHYSICAL EXAM: GENERAL: Patient is in no acute distress. HEENT: No acute trauma, normocephalic atraumatic, mucous membranes moist, no nasal congestion, no scleral icterus. NECK: No stridor, no adenopathy, no meningismus, trachea is midline. LUNGS: Clear to auscultation bilaterally, no wheeze, no rhonchi, breath sounds equal. HEART: Without murmurs gallops or rubs, regular rate and rhythm. ABDOMEN: Soft, moderately tender in the right upper quadrant and epigastrium, no peritonitis, no obvious hernia. EXTREMITIES: No cyanosis or edema, full range of motion of all the joints without pain or difficulty, no signs for acute trauma. NEUROLOGIC: Oriented x 3, no acute motor or sensory deficits, no focal weakness. SKIN: No rash, no jaundice, no diaphoresis. DIFFERENTIAL DIAGNOSIS: Ovarian cyst, ovarian torsion, ectopic , TOA, PID, infections, diverticulitis, UTI, obstruction, mesenteric ischemia, aortic pathology, inflammatory bowel disease, renal colic, PUD, pancreatitis, biliary pathology, hernia, volvulus, constipation, as well as other pathologies. EMERGENCY DEPARTMENT COURSE/PROCEDURES: Continuous Cardiac Monitoring: An order was placed for continuous cardiac monitoring. The monitor shows a rate of 69 with normal sinus rhythm. MEDICAL DECISION MAKING: There is no leukocytosis or concerning anemia. No significant electrolyte abnormality or kidney failure. No concerning liver enzyme elevation. No evidence for pancreatitis. Urinalysis did not show hematuria or infection. Cardiac troponin testing did not show any evidence for cardiac ischemia. Chest film did not show pneumonia or free air. Gallbladder ultrasound showed some gallbladder sludge, no fluid around the gallbladder, no ductal dilatation. Abdominal and pelvis CT showed some chronic findings, no acute surgical process by CT scan. On my exam, the patient was not toxic or febrile. She was tender in the right upper quadrant. The patient received IV Toradol, IV Zofran and IV saline. She eventually received IV Dilaudid for pain. I did speak with general surgery. They evaluated the patient in the ED. They did not think acute surgical intervention was required. I talked to the patient further about options, she is too uncomfortable to be discharged home. I did speak with case management, the on-call hospitalist has been consulted. The patient will be watched overnight in the hospital. She will have general surgery following along as a consult. For now, surgery has recommended a HIDA scan. At this point, the cause for her pain is unclear but does potentially seem consistent with biliary colic. Past Med/Surg History Medical History Abdominal pain (Acute) Depression Dizziness (Acute) GERD (gastroesophageal reflux disease) (Chronic) History of hypothyroidism Stroke-like symptoms (Acute) Thyroid cancer Surgical History History of total abdominal hysterectomy and bilateral salpingo-oophorectomy Hx of thyroidectomy Hx of tonsillectomy S/P section Status post appendectomy (Chronic) Status post cervical spinal fusion (Chronic) Status post Jeny fundoplication (Chronic) Family History Mother Diabetes Family/Other Colorectal cancer niece- dx age 27 Hypertension Heart disease Denies family history of Ovarian cancer Breast cancer Uterine cancer Social History Preferred Language: Arabic Communication Ability: Effective Clearance Coordinator Required: No Beliefs That Will Affect Care: None marital status: Current Living Situation: Spouse current occupational status: employed Other Information That Helps Us Care for You: No Feels Safe at Home: Yes Safety Concerns: Feels Safe At This Time Smoking Status: Never smoker Hx Alcohol Use: No Hx Substance Use: No Allergies Allergies Allergy/AdvReac Type Severity Reaction Status Date / Time morphine Allergy Intermediate RASH Verified 02/08/20 10:56 nitroglycerin AdvReac Intermediate SEVERELY Verified 02/08/20 10:56 LOW BLOOD PRESSURE Home Meds Home Medications Medication Instructions Recorded Confirmed omeprazole 20 mg PO DAILY 05/26/18 02/08/20 diphenhydramine-acetaminophen 1 tab PO HS PRN 02/08/20 02/08/20 [Tylenol PM Extra Strength] duloxetine 20 mg PO PM 02/08/20 02/08/20 levothyroxine 75 mcg PO DAILY 02/08/20 02/08/20 Results & Data (ED) Vital Signs Vital Signs - 24 hr 02/08/20 10:11 02/08/20 10:57 02/08/20 13:05 Temperature 36.8 C Temperature Source Oral Pulse Rate 73 Pulse Rate [Finger] 57 L 69 Pulse Rhythm Regular Pulse Strength Normal Respiratory Rate 18 18 24 Respiratory Effort / Characteristics Non-Labored Respiratory Depth Normal Respiratory Pattern Regular Blood Pressure 120/83 Blood Pressure [Left Arm] 133/80 126/78 Blood Pressure Mean 95 Blood Pressure Mean [Left Arm] 97 94 Blood Pressure Position Sitting Pulse Oximetry 100 100 99 Oxygen Delivery Method Room Air Room Air Room Air Sepsis Recent Fever Within 48 Hours No Sepsis Action Taken by Nursing No Action Required Home Medications Current Medication List: was personally reviewed by me Laboratory Data Attestation: I reviewed the patient's lab results. Result diagrams: 02/08/20 10:29 02/08/20 10:29 Lab Results 02/08/20 02/08/20 02/08/20 Range/Units 10:29 10:29 10:35 WBC 5.09 (4.8-10.8) K/uL RBC 4.44 (4.2-5.4) M/uL Hgb 13.0 (12.0-16.0) g/dL Hct 38.2 (37-47) % MCV 86.0 (80-100) fL MCH 29.3 (25-34) pg MCHC 34.0 (32-36) g/dL RDW Std Deviation 39.4 (36.4-46.3) fL RDW Coeff of Liyah 12.5 (11.5-14.5) % Plt Count 213 (130-400) K/uL MPV 11.0 H (7.4-10.4) fL Immature Gran % (Auto) 0.0 % Neut % (Auto) 37.1 % Lymph % (Auto) 51.1 % Tillman % (Auto) 8.8 % Eos % (Auto) 2.6 % Baso % (Auto) 0.4 % Immature Gran # (Auto) 0.00 (0.00-0.02) K/uL Neut # (Auto) 1.89 (1.4-6.5) K/uL Lymph # (Auto) 2.60 (1.2-3.4) K/uL Tillman # (Auto) 0.45 (0.11-0.59) K/uL Eos # (Auto) 0.13 (0-0.5) K/uL Baso # (Auto) 0.02 (0-0.2) K/uL Sodium 142 (136-145) mmol/L Potassium 3.7 (3.5-5.1) mmol/L Chloride 110 H (98-107) mmol/L Carbon Dioxide 28 (21-32) mmol/L Anion Gap 4.0 (3-11) BUN 10 (7-18) mg/dl Creatinine 0.75 (0.6-1.2) mg/dl Est Cr Clr Drug Dosing 67.8 ml/min Est GFR ( Amer) 104.7 Est GFR (Non-Af Amer) 90.4 BUN/Creatinine Ratio 13.2 (10-20) Glucose 88 (70-99) mg/dl Calcium 8.0 L (8.5-10.1) mg/dl Total Bilirubin 0.9 (0.2-1) mg/dl AST 20 (15-37) U/L ALT 22 (12-78) U/L Alkaline Phosphatase 73 (45-117) U/L Troponin I < 0.015 (0-0.045) ng/ml Total Protein 6.3 L (6.4-8.2) gm/dl Albumin 3.3 L (3.4-5.0) gm/dl Globulin 3.0 (2.5-4.0) gm/dl Albumin/Globulin Ratio 1.1 (0.9-2) Lipase 133 (73-393) U/L Urine Color Yellow Urine Appearance Clear (Clear) Urine pH 5.5 (4.5-7.5) Ur Specific [place] 1.011 (1.000-1.030) Urine Protein Negative (Negative) Urine Glucose (UA) Negative (Negative) Urine Ketones Negative (Negative) Urine Blood Negative (Negative) Urine Nitrite Negative (Negative) Urine Bilirubin Negative (Negative) Urine Urobilinogen Negative (Negative) Ur Leukocyte Esterase Negative (Negative) Administered Medications Hydromorphone HCl (Dilaudid) 0.5 mg IV Q4H PRN PRN Reason: Severe Pain Stop: 02/22/20 14:59 Last Admin: 02/08/20 17:34 Dose: 0.5 mg Documented by: [id number] Dextrose/Sodium Chloride (D5w And Nss) 1,000 mls @ 80 mls/hr IV .[id number] MARIA LUISA Stop: 02/09/20 15:59 Last Admin: 02/08/20 15:31 Dose: 80 mls/hr Documented by: [id number] Discontinued Medications Hydromorphone HCl (Dilaudid) 0.5 mg IV NOW STA Stop: 02/08/20 13:15 Last Admin: 02/08/20 13:40 Dose: 0.5 mg Documented by: [id number] Sodium Chloride (Nss 1000ml) 1,000 mls @ 999 mls/hr IV .Q1H1M ONE Stop: 02/08/20 11:25 Last Infusion: 02/08/20 11:54 Dose: 0 mls/hr Documented by: [id number] Admin: 02/08/20 10:53 Dose: 999 mls/hr Documented by: [id number] Ioversol (Optiray 320 100ml) 94 ml IV ONCE PRN PRN Reason: Interaction Checking Stop: 02/12/20 11:43 Last Admin: 02/08/20 11:45 Dose: 94 ml Documented by: [id number] Ketorolac Tromethamine (Toradol) 15 mg IV NOW STA Stop: 02/08/20 10:26 Last Admin: 02/08/20 10:52 Dose: 15 mg Documented by: [id number] Ondansetron HCl (Zofran) 4 mg IV NOW STA Stop: 02/08/20 10:26 Last Admin: 02/08/20 10:52 Dose: 4 mg Documented by: [id number] Imaging Data Radiologist's Impression: XR chest 1V portable HISTORY: right chest/abd pain COMPARISON: Chest 09/06/2019. FINDINGS: No pneumothorax. No pleural effusions. Stable calcified granuloma within the right lung apex. The lungs are otherwise clear. Cervical spinal fusion hardware is again noted. The heart is normal in size. No acute rib fractures. IMPRESSION: No significant change compared to the prior study. No acute process. US gallbladder CLINICAL HISTORY: 54 years-old Female presenting with ruq pain. TECHNIQUE: Real-time grayscale and limited color Doppler ultrasound imaging of the abdomen limited to the right upper quadrant was performed. COMPARISON: 11/02/[address] from 10/14/2019. FINDINGS: Pancreas: Largely obscured due to overlying bowel gas. Liver: Minimally hyperechogenic parenchyma, although the right hemidiaphragm remains visible, likely indicating mild steatosis. The liver measures 16.8 cm in maximal sagittal dimension. No sonographic evidence of hepatic mass. Main portal vein patent with normal directional flow. Biliary: No intrahepatic biliary ductal dilatation. Common bile duct measures up to 4 mm in diameter. Gallbladder: Gallbladder sludge. No evidence of gallstones, gallbladder wall thickening, gallbladder distention, or pericholecystic fluid or inflammatory change. Sonographic Brooks's sign negative. Right kidney: Normal in appearance without evidence of hydronephrosis. Ascites: None. Other: None. IMPRESSION: Gallbladder sludge. No cholelithiasis or biliary ductal dilatation. CT abd pelvis IV con only CLINICAL HISTORY: 54 years-old Female presenting with right upper quadrant pain started this morning, history of multiple abdominal surgeries, gallbladder sludge on ultrasound, diarrhea. TECHNIQUE: Multidetector CT of the abdomen and pelvis was performed after the administration of intravenous contrast. IV contrast: 94 mL of Optiray 320. One or more dose lowering techniques were used consistent with the principles of ALARA (as low as reasonably achievable), including automatic exposure control, mA or kV adjustment to individual patient size, and/or use of iterative reconstruction. COMPARISON: 10/14/2019. CT DOSE (mGy.cm): The estimated cumulative dose is 266.14 mGy.cm. FINDINGS: Co Director topogram: Unremarkable. Lung bases: Normal heart size. No pericardial or pleural effusion. No focal infiltrate or nodule at the lung bases. Liver: Normal morphology. No liver lesion. Patent hepatic vasculature. Biliary: No intrahepatic or extrahepatic biliary ductal dilatation. Normal gallbladder. Pancreas: Normal. Spleen: Normal. Adrenal glands: Normal. Kidneys and ureters: Normal. No hydronephrosis. Bladder: Normal. Pelvic organs: Uterus surgically absent. No adnexal masses. Bowel: Postsurgical changes of appendectomy. No bowel obstruction. Peritoneal cavity: Trace of fluid in the pelvis. No free intraperitoneal gas. Lymph nodes: No enlarged lymph nodes in the abdomen or pelvis. Vasculature: Aorta and IVC patent and normal in caliber. Abdominal wall: Normal. Musculoskeletal: Normal. IMPRESSION: 1. No acute intra-abdominal pathology. Blood Pressure Blood Pressure Findings: Elevated blood pressure Blood Pressure Disposition: further management by hospitalist Discharge Plan Visit Data *Final* Discharge Date/Time: 02/08/20 14:41 Chief Complaint: Abdominal Pain Stated Complaint: URQ PAIN ED Provider: Mu Merritt Discharge Problem: RUQ abdominal pain, Diarrhea, Nausea Patient Disposition: Admitted As Inpatient Condition: Good Discharge Instructions Interventions: ED Discharge Assessment Last Done: 02/08/20 14:41 Discharge Problem: Diarrhea Qualifiers: Diarrhea type: unspecified type Qualified Code(s): R19.7 - Diarrhea, unspecified
[2020-02-08 10:44] LABS: Appearance Urine Clear (Clear); Bilirubin Urine Negative (Negative); Blood Urine Negative (Negative); Color Urine Yellow; Glucose Urine UA Negative (Negative); Ketones Urine Negative (Negative); Leukocyte Esterase Urine Negative (Negative); Nitrite Urine Negative (Negative); Protein Urine Negative (Negative); Specific Gravity Urine 1.011 (1.000-1.030); Urobilinogen Urine Negative (Negative); pH Urine 5.5 (4.5-7.5)
[2020-02-08 10:45] LABS: Hematocrit (blood only) 38.2 % (37-47); Mean Corpuscular Hemoglobin 29.3 pg (25-34); Platelet Count 213 K/uL (130-400); RDW Coefficient of Variation 12.5 % (11.5-14.5); RDW Standard Deviation 39.4 fL (36.4-46.3); Red Blood Count 4.44 M/uL (4.2-5.4); White Blood Count 5.09 K/uL (4.8-10.8)
--- NOTE | 2020-02-08 10:57 | XRay Report ---
XR chest 1V portable HISTORY: right chest/abd pain COMPARISON: Chest 09/06/2019. FINDINGS: No pneumothorax. No pleural effusions. Stable calcified granuloma within the right lung ape x. The lungs are otherwise clear. Cervical spinal fusion hardware is again noted. The heart is normal in size. No acute rib fractures. IMPRESSION: No significant change compared to the prior study. No acute process. ACT 112: Negative or not required by law. Electronically signed by: Chris Castro M.D. 02/08/2020 10:55 AM
[2020-02-08 11:02] LABS: Alanine Aminotransferase 22 U/L (12-78); Albumin Level 3.3 gm/dl (3.4-5.0); Aspartate Aminotransferase 20 U/L (15-37); BUN Creatinine Ratio 13.2 (10-20); Blood Urea Nitrogen 10 mg/dl (7-18); Carbon Dioxide 28 mmol/L (21-32); Chloride 110 mmol/L (98-107); Creatinine Clr Calc Pharmacy 67.8 ml/min; Est GFR (African American) 104.7; Est GFR (Non-African American) 90.4; Glucose 88 mg/dl (70-99); Lipase 133 U/L (73-393); Potassium 3.7 mmol/L (3.5-5.1); Sodium 142 mmol/L (136-145)
[2020-02-08 11:06] LABS: Basophils # (auto) 0.02 K/uL (0-0.2); Basophils % (auto) 0.4 %; Eosinophils # (auto) 0.13 K/uL (0-0.5); Eosinophils % (auto) 2.6 %; Lymphocytes % (auto) 51.1 %; Monocytes # (auto) 0.45 K/uL (0.11-0.59); Monocytes % (auto) 8.8 %; Neutrophils # (auto) 1.89 K/uL (1.4-6.5); Neutrophils % (auto) 37.1 %
[2020-02-08 11:07] LABS: Albumin Globulin Ratio 1.1 (0.9-2); Alkaline Phosphatase 73 U/L (45-117); Bilirubin,Total 0.9 mg/dl (0.2-1); Total Protein 6.3 gm/dl (6.4-8.2); Troponin I < 0.015 ng/ml (0-0.045)
--- NOTE | 2020-02-08 11:21 | Ultrasound Report ---
US gallbladder CLINICAL HISTORY: 54 years-old Female presenting with ruq pain. TECHNIQUE: Real-time grayscale and limited color Doppler ultrasound imaging of the abdomen limited to the right upper quadrant was performed. COMPARISON: 11/02/[address] from 10/14/2019. FINDINGS: Pancreas: Largely obscured due to overlying bowel gas. Liver: Minimally hyperechogenic parenchyma, although the right hemidiaphragm remains visible, likely indicating mild steatosis. The liver measures 16.8 cm in maximal sagittal dimension. No sonographic e vidence of hepatic mass. Main portal vein patent with normal directional flow. Biliary: No intrahepatic biliary ductal dilatation. Common bile duct measures up to 4 mm in diameter. Gallbladder: Gallbladder sludge. No evidence of gallstones, gallbladder wall thickening, gallbladder distention, or pericholecystic fluid or inflammatory change. Sonographic Brooks's sign negative. Right kidney: Normal in appearance without evidence of hydronephrosis. Ascites: None. Other: None. IMPRESSION: Gallbladder sludge. No cholelithiasis or biliary ductal dilatation. ACT 112: Negative or not required by law. Electronically signed by: Abdirahman Michel M.D. 02/08/2020 11:20 AM
[2020-02-08] MEDS ORDERED: IOVERSOL 100ml IV PRN (11:44)
--- NOTE | 2020-02-08 12:08 | CT Scan Report ---
CT abd pelvis IV con only CLINICAL HISTORY: 54 years-old Female presenting with right upper quadrant pain started this morning, history of multiple abdominal surgeries, gallbladder sludge on ultrasound, diarrhea. TECHNIQUE: Multidetector CT of the abdomen and pelvis was performed after the administration of intra venous contrast. IV contrast: 94 mL of Optiray 320. One or more dose lowering techniques were used co nsistent with the principles of ALARA (as low as reasonably achievable), including automatic exposure control, mA or kV adjustment to individual patient size, and/or use of iterative reconstruction. COMPARISON: 10/14/2019. CT DOSE (mGy.cm): The estimated cumulative dose is 266.14 mGy.cm. FINDINGS: Prosthetic Makeup Designer topogram: Unremarkable. Lung bases: Normal heart size. No pericardial or pleural effusion. No focal infiltrate or nodule at t he lung bases. Liver: Normal morphology. No liver lesion. Patent hepatic vasculature. Biliary: No intrahepatic or extrahepatic biliary ductal dilatation. Normal gallbladder. Pancreas: Normal. Spleen: Normal. Adrenal glands: Normal. Kidneys and ureters: Normal. No hydronephrosis. Bladder: Normal. Pelvic organs: Uterus surgically absent. No adnexal masses. Bowel: Postsurgical changes of appendectomy. No bowel obstruction. Peritoneal cavity: Trace of fluid in the pelvis. No free intraperitoneal gas. Lymph nodes: No enlarged lymph nodes in the abdomen or pelvis. Vasculature: Aorta and IVC patent and normal in caliber. Abdominal wall: Normal. Musculoskeletal: Normal. IMPRESSION: 1. No acute intra-abdominal pathology. ACT 112: Negative or not required by law. Electronically signed by: Abdirahman Michel M.D. 02/08/2020 12:06 PM
--- NOTE | 2020-02-08 13:08 | Surgery Consultation ---
Date of Consultation February 08, 2020 Assessment & Plan (1) Abdominal pain: CT negative, US essentially negative, labs negative. no evidence of cholecystitis. symptoms not compatible with simple sludge. suspect gastroenteritis. recommend Option 1: d/c with bentyl, zofran etc... and f/u with pcp option 2: admit to medicine for observation and symptom control. if no improvement could consider HIDA with EF %. (2) Diarrhea: (3) Nausea: History of Present Illness History of Present Illness pt with 2 day history of nausea, watery diarrhea and upper abdominal pain/RUQ abdominal pain. no emesis. Allergies Allergy/AdvReac Type Severity Reaction Status Date / Time morphine Allergy Intermediate RASH Verified 02/08/20 10:56 nitroglycerin AdvReac Intermediate SEVERELY Verified 02/08/20 10:56 LOW BLOOD PRESSURE Home Medications Home Medications Medication Instructions Recorded Confirmed Type omeprazole 20 mg PO DAILY 05/26/18 02/08/20 History duloxetine 20 mg PO DAILY 02/08/20 02/08/20 History levothyroxine 75 mcg PO DAILY 02/08/20 02/08/20 History Patient History Social History Preferred Language: Mongolian marital status: Current Living Situation: Spouse current occupational status: employed Feels Safe at Home: Yes Smoking Status: Never smoker Review of Systems Review of Systems: All systems reviewed & are unremarkable except as noted in HPI & below Physical Exam Constitutional: WD/WN, vitals as above no acute distress and not ill appearing Eyes: PERRL, conjunctivae normal, anicteric sclerae EOM intact bilaterally ENMT: external ear and nose normal, oropharynx normal Ears: no hearing impairment Neck: trachea midline, no thyromegaly Respiratory: normal respiratory effort; no respiratory distress and does not use accessory muscles Cardiovascular: Rate/Rhythm: regular rate and regular rhythm Gastrointestinal (Abdomen): soft. +epigastric and RUQ ttp. no g/r/r. Skin: no rashes, warm and dry Psychiatric: Orientation: alert, oriented x 3 and cooperative Results & Data Vital Signs (Past 12 Hours) Vital Signs Temp Pulse Pulse Resp BP BP Pulse Ox 02/08/20 10:57 57 L 18 133/80 100 02/08/20 10:11 36.8 C 73 18 120/83 100 PG Care Time/CCT Total # of Minutes Spent Total Time Spent with Patient: Total time spent is greater than 50% in coordination of care (as documented) at patient's floor/unit and/or counseling patient: Coding Level of Care Code 22899 Office/OBS Consult Lvl 4 Diagnoses Abdominal pain R10.9 Diarrhea R19.7 Nausea R11.0
[2020-02-08] MEDS ORDERED: HYDROmorphone INJ 0.5 MG/0.5 ML SYR IV STA (13:14)
--- NOTE | 2020-02-08 14:13 | History & Physical Report ---
Date of Service February 08, 2020 Assessment & Plan (1) RUQ abdominal pain: DDX: biliary colic, gastroenteritis Pt is 54 y/o F with PMH papillary thyroid cancer s/p thyroidectomy, GERD, depression, anxiety presented to ER with complaint of sharp consistent RUQ pain today. Yesterday with RUQ pain resolved and 5 epidoses of diarrhea. Tactile fevers, reported intermittent RUQ with greasy foods x couple of months. In ER afebrile, P: 73, R: 18, BP: 120/83, 100% on RA. No leukocytosis, LFTs WNL , Normal lipase, UA: negative US Gallbladder: Gallbladder sludge. No cholelithiasis or biliary ductal dilatation. CT Abd/pelvis: No acute intra-abdominal pathology. -In ER given 1L NSS, Toradol 15mg IV, Dilaudid 0.5mg IV, Zofran 4mg IV -NPO except ice chips -IVF -Antiemetics, pain meds prn -No signs of acute cholecystitis on imaging and no leukocytosis or fever, will hold on antibiotics at this time -General surgery consult, Dr Tavares saw pt in ER, recommends HIDA scan -CBC, CMP in am (2) Thyroid cancer: S/P thyroidectomy -Continue levothyroxine (3) Depression: Anxiety -Continue duloxetine (4) GERD (gastroesophageal reflux disease): -Continue PPI DVT Prophylaxis -Low risk, ambulate Full Code as per discussion with pt Follows with Dr Kendall for routine care Pt was seen and care coordinated with Dr Casarez. See addendum History of Present Illness Chief Complaint: Abdominal pain Primary Care Provider: Osmar Kendall MD Pt is 54 y/o F with PMH papillary thyroid cancer s/p thyroidectomy, GERD, depression, anxiety presented to ER with complaint of RUQ pain. Patient states yesterday had some mild RUQ pain after eating but then resolved. States this morning around 8 AM started with sharp right upper quadrant pain with radiation to right back that has been constant. No prior treatment today. Complains of nausea with no vomiting. Yesterday reports 5 episodes of loose stools. Patient reports feels hot, did not take temperature at home. Patient states the last couple of months has been noticing intermittent right upper quadrant pain after eating greasy foods and usually took Tylenol with relief of pain. Denies ill contacts, recent travel. Denies diaphoresis, melena, hematochezia GOMEZ, dizziness, syncope, vision changes, neck pain, CP, SOB, orthopnea, palpitations, cough, sore throat, choking, otalgia, rhinorrhea, paresthesias, weakness, extremity weakness, extremity edema, rashes, urinary symptoms. Allergies Allergy/AdvReac Type Severity Reaction Status Date / Time morphine Allergy Intermediate RASH Verified 02/08/20 10:56 nitroglycerin AdvReac Intermediate SEVERELY Verified 02/08/20 10:56 LOW BLOOD PRESSURE Home Medications Home Medications Medication Instructions Recorded Confirmed Type omeprazole 20 mg PO DAILY 05/26/18 02/08/20 History diphenhydramine-acetaminophen 1 tab PO HS PRN 02/08/20 02/08/20 History [Tylenol PM Extra Strength] duloxetine 20 mg PO PM 02/08/20 02/08/20 History levothyroxine 75 mcg PO DAILY 02/08/20 02/08/20 History Past Med/Surg History Medical History Abdominal pain (Acute) Depression Dizziness (Acute) GERD (gastroesophageal reflux disease) (Chronic) History of hypothyroidism Stroke-like symptoms (Acute) Thyroid cancer Surgical History History of total abdominal hysterectomy and bilateral salpingo-oophorectomy Hx of thyroidectomy Hx of tonsillectomy S/P section Status post appendectomy (Chronic) Status post cervical spinal fusion (Chronic) Status post Jeny fundoplication (Chronic) Family History Mother Diabetes Family/Other Colorectal cancer niece- dx age 27 Hypertension Heart disease Denies family history of Ovarian cancer Breast cancer Uterine cancer Social History Preferred Language: Grenadian Communication Ability: Effective Video Photographer Required: No Beliefs That Will Affect Care: None marital status: Current Living Situation: Spouse current occupational status: employed Other Information That Helps Us Care for You: No Feels Safe at Home: Yes Safety Concerns: Feels Safe At This Time Smoking Status: Never smoker Hx Alcohol Use: No Hx Substance Use: No Review of Systems Review of Systems: All systems reviewed & are unremarkable except as noted in HPI & below Physical Exam Physical Exam: General: no distress, WDWN Head: normocephalic, atraumatic Eyes: PERRL, EOM's intact, conjunctiva non-injected, anicteric ENT: normal inspection external ears, nose, mucous membranes moist Neck: supple, trachea midline Lungs: clear, no respiratory distress, no wheezing/rhonchi/rales CV: RRR, no murmur, no pretibial edema Abd: +healed surgical scars, normal BS, soft, +tenderness to palpation RUQ without rebound or guarding Ext: no cyanosis, no calf tenderness Neuro: A&O x 3, no focal deficits noted, normal affect Skin: warm, dry Results & Data Results & Data ([facility]) Vital Signs (Past 12 Hours) Vital Signs Temp Pulse Pulse Resp BP BP Pulse Ox 02/08/20 13:05 69 24 126/78 99 02/08/20 10:57 57 L 18 133/80 100 02/08/20 10:11 36.8 C 73 18 120/83 100 Laboratory Results Short CBC 02/08/20 Range/Units 10:29 WBC 5.09 (4.8-10.8) K/uL Hgb 13.0 (12.0-16.0) g/dL Hct 38.2 (37-47) % Plt Count 213 (130-400) K/uL BMP 02/08/20 10:29 Sodium 142 Potassium 3.7 Chloride 110 H Carbon Dioxide 28 BUN 10 Creatinine 0.75 Glucose 88 Calcium 8.0 L Cardiac Enzymes 02/08/20 Range/Units 10:29 Troponin I < 0.015 (0-0.045) ng/ml Liver Function 02/08/20 Range/Units 10:29 Total Bilirubin 0.9 (0.2-1) mg/dl AST 20 (15-37) U/L ALT 22 (12-78) U/L Alkaline Phosphatase 73 (45-117) U/L Albumin 3.3 L (3.4-5.0) gm/dl Urine 02/08/20 Range/Units 10:35 Urine Color Yellow Urine Appearance Clear (Clear) Urine pH 5.5 (4.5-7.5) Ur Specific [place] 1.011 (1.000-1.030) Urine Protein Negative (Negative) Urine Glucose (UA) Negative (Negative) Diagnostic Findings US GALLBLADDER: IMPRESSION: Gallbladder sludge. No cholelithiasis or biliary ductal dilatation. CT ABD/PELVIS: IMPRESSION: 1. No acute intra-abdominal pathology. CXR: IMPRESSION: No significant change compared to the prior study. No acute process Supervising Physician Co-Signing Physician Notes Pt was seen and examined. Agreed with Janet KEN exam, assessment and plan. 54 y/o F with PMH papillary thyroid cancer s/p thyroidectomy, GERD, depression, anxiety presented to ER with complaint of RUQ pain. Pt said that she developed RUQ pain last night, but this morning pain worsening and radiating to her back. Pt said that she had similar pain back in September. She said that she sometimes has pain after eating greasy food. CT abdomen and pelvis done in the ER showed no acute intra-abdominal pathology. Gallbladder U/S showed gallbladder sludge with no cholelithiasis or biliary ductal dilatation. On abdominal exam RUQ tenderness with palpation, no guarding or distention. Received IV fluid in the ER and pain control. Surgery was consulted and no evidence of cholecystitis. Recommended HIDA scan in am. Will continue IV fluid and antiemetic med. Will hold on antibiotic for now. Will keep NPO except ice chips for now. Continue monitor closely. MD Leida
[2020-02-08] MEDS ORDERED: HYDROmorphone INJ 0.5 MG/0.5 ML SYR IV PRN (15:00)
[2020-02-08] MEDS ORDERED: ACETAMINOPHEN 325 MG TAB PO PRN (15:00)
[2020-02-08] MEDS ORDERED: ONDANSETRON INJ 2 MG/ML 2 ML VIAL IV PRN (15:00)
[2020-02-08] MEDS: D5W AND NSS 1,000 ML IV SCH (15:31)
[2020-02-08] MEDS ORDERED: ACETAMINOPHEN 500 MG TAB PO PRN (21:00)
[2020-02-08] MEDS ORDERED: DULOXETINE HCL 20 MG CAP PO SCH (21:00)
[2020-02-09] MEDS: D5W AND NSS 1,000 ML IV SCH (03:44)
[2020-02-09] MEDS ORDERED: LEVOTHYROXINE SODIUM 75 MCG TABLET PO SCH (06:30)
[2020-02-09 07:19] VITALS: BP 131/74; PULSE 74; TEMP 97.9; O2SAT 98
[2020-02-09 07:23] LABS: Hemoglobin 13.8 g/dL (12.0-16.0); Mean Corpuscular Hemoglobin 30.1 pg (25-34); Mean Corpuscular Hgb Conc 34.5 g/dL (32-36); Mean Corpuscular Volume 87.3 fL (80-100); Mean Platelet Volume 11.2 fL (7.4-10.4); Platelet Count 203 K/uL (130-400); RDW Coefficient of Variation 12.5 % (11.5-14.5); RDW Standard Deviation 40.1 fL (36.4-46.3); Red Blood Count 4.58 M/uL (4.2-5.4); White Blood Count 5.83 K/uL (4.8-10.8)
[2020-02-09 07:52] LABS: Albumin Level 3.1 gm/dl (3.4-5.0); BUN Creatinine Ratio 9.6 (10-20); Calcium 8.5 mg/dl (8.5-10.1); Creatinine Clr Calc Pharmacy 79.5 ml/min; Est GFR (African American) 117.3; Est GFR (Non-African American) 101.2
[2020-02-09 07:54] LABS: Total Protein 6.1 gm/dl (6.4-8.2)
--- NOTE | 2020-02-09 08:05 | Surgery Progress Note ---
Date of Service February 09, 2020 Assessment & Plan (1) RUQ abdominal pain: Patient continues with abdominal symptoms LFT's within normal limits, WBC normal Will proceed with HIDA scan this AM If negative may need to consider GI consult for possible scope Pt seen with Dr. Tavares as above. continues to have upper abdominal pain, nausea with retching...diarrhea improved. pt for HIDA today. doubt gallbladder etiology. if HIDA negative would obtain GI consult. Subjective Patient continues with abdominal pain, nausea, and "spitting up". Believes her diarrhea is improved. Physical Exam Physical Exam: awake Results & Data Vital Signs (Past 12 Hours) Vital Signs Temp Pulse Resp BP Pulse Ox 02/09/20 07:18 36.6 C 74 18 131/74 98 02/08/20 22:33 36.7 C 65 16 100/61 96 PG Care Time/CCT Total # of Minutes Spent Total Time Spent with Patient: Total time spent is greater than 50% in coordination of care (as documented) at patient's floor/unit and/or counseling patient: Coding Level of Care Code 14926 Subseq Hosp Care Lvl 3 Diagnoses RUQ abdominal pain R10.11
[2020-02-09] MEDS ORDERED: PANTOprazole 40 MG TAB PO SCH (09:00)
--- NOTE | 2020-02-09 13:55 | Hospitalist Progress Note ---
Date of Service February 09, 2020 Assessment & Plan (1) RUQ abdominal pain: Initially believed that likely due to biliary colic, or gastroenteritis Pt is 54 y/o F with PMH papillary thyroid cancer s/p thyroidectomy, GERD, depression, anxiety presented to ER with complaint of sharp consistent RUQ pain today. Then RUQ pain resolved and had 5 epidoses of diarrhea. Tactile fevers, reported intermittent RUQ with greasy foods x couple of months. In ER afebrile, P: 73, R: 18, BP: 120/83, 100% on RA. No leukocytosis, LFTs WNL, Normal lipase, UA: negative US Gallbladder: Gallbladder sludge. No cholelithiasis or biliary ductal dilatation. CT Abd/pelvis: No acute intra-abdominal pathology. -In ER given 1L NSS, Toradol 15mg IV, Dilaudid 0.5mg IV, Zofran 4mg IV -NPO except ice chips -IVF -Antiemetics, pain meds prn -No signs of acute cholecystitis on imaging and no leukocytosis or fever, will hold on antibiotics at this time -General surgery consult, Dr Tavares saw pt in ER, recommends HIDA scan for complete evaluation however notes no evidence of cholecystitis, symptoms not compatible with simple sludge, suspect gastroenteritis -Patient declined HIDA scan, states that she is very claustrophobic and could not undergo the study. -Today she feels well, she denies any fevers, chills, abdominal pain, nausea or vomiting. She says that she has been having a lot of gas and now after passing a lot of gas she feels back to her normal. She actually is anxious to go home. -She has been afebrile while in the hospital, and as mentioned above, imaging unrevealing, labs within normal limits as well -Discussed with the patient, that I would start her on simethicone now, and she should follow-up with her primary care doctor within 1 week. If her symptoms are recurrent she may need a GI evaluation. Patient is in agreement with this plan. (2) Thyroid cancer: S/P thyroidectomy -Continue levothyroxine (3) Depression: Anxiety -Continue duloxetine (4) GERD (gastroesophageal reflux disease): -Continue PPI DVT Prophylaxis -Low risk, ambulate Full Code as per discussion with pt Follows with Dr Kendall for routine care Admission and Anticipated Discharge Date Admission Date: February 08, 2020 Subjective No acute events overnight, patient is lying in bed, in no acute distress. She states that her abdominal pain resolved and she just feels that she is passing a lot of gas. Patient was evaluated by the surgical service, all images unrevealing, ordered HIDA scan today for complete evaluation. Patient declines HIDA scan and says she feels very claustrophobic and not able to undergo the study. At this point completely denies any symptoms, denies any fevers, chills, chest pain, shortness of breath, abdominal pain, nausea or vomiting. She reiterates that after passing a lot of gas she feels much better now. She also is anxious to go home. Discussed that we can start her on simethicone and see how she does with that. I also recommended that she follows up with primary care provider within a week if her symptoms would recur, she may need a GI evaluation. Patient understands and agrees with the plan. Review of Systems Review of Systems: All systems reviewed & are unremarkable except as noted in HPI & below Constitutional: no fever and no chills Respiratory: no cough and no dyspnea Cardiovascular: no chest pain, no palpitations and no edema Gastrointestinal: no abdominal pain, no nausea and no vomiting Genitourinary: no dysuria Physical Exam Physical Exam: General: Middle-aged female lying in bed, in no distress, WDWN Head: normocephalic, atraumatic Eyes: PERRL, EOM's intact, conjunctiva non-injected, anicteric ENT: normal inspection external ears, nose, mucous membranes moist Neck: supple, trachea midline Lungs: clear, no respiratory distress, no wheezing/rhonchi/rales CV: RRR, no murmur, no pretibial edema Abd: +healed surgical scars, normal BS, soft, nondistended, nontender to palpation in any abd. quadrant Ext: no cyanosis, no calf tenderness, moves extremities spontaneously without difficulty Neuro: A&O x 3, no focal deficits noted, normal affect Skin: warm, dry, well perfused Results & Data Results & Data ([facility]) Vital Signs (Past 12 Hours) Vital Signs Temp Pulse Resp BP Pulse Ox 02/09/20 07:18 36.6 C 74 18 131/74 98 Laboratory Results 02/09/20 02/09/20 Range/Units 06:56 06:56 WBC 5.83 (4.8-10.8) K/uL RBC 4.58 (4.2-5.4) M/uL Hgb 13.8 (12.0-16.0) g/dL Hct 40.0 (37-47) % MCV 87.3 (80-100) fL MCH 30.1 (25-34) pg MCHC 34.5 (32-36) g/dL RDW Std Deviation 40.1 (36.4-46.3) fL RDW Coeff of Liyah 12.5 (11.5-14.5) % Plt Count 203 (130-400) K/uL MPV 11.2 H (7.4-10.4) fL Sodium 140 (136-145) mmol/L Potassium 4.0 (3.5-5.1) mmol/L Chloride 109 H (98-107) mmol/L Carbon Dioxide 24 (21-32) mmol/L Anion Gap 7.0 (3-11) BUN 6 L (7-18) mg/dl Creatinine 0.64 (0.6-1.2) mg/dl Est Cr Clr Drug Dosing 79.5 ml/min Est GFR ( Amer) 117.3 Est GFR (Non-Af Amer) 101.2 BUN/Creatinine Ratio 9.6 L (10-20) Glucose 126 H (70-99) mg/dl Calcium 8.5 (8.5-10.1) mg/dl Total Bilirubin 1.0 (0.2-1) mg/dl AST 20 (15-37) U/L ALT 20 (12-78) U/L Alkaline Phosphatase 75 (45-117) U/L Total Protein 6.1 L (6.4-8.2) gm/dl Albumin 3.1 L (3.4-5.0) gm/dl Globulin 3.0 (2.5-4.0) gm/dl Albumin/Globulin Ratio 1.0 (0.9-2) Medications Administered Current Inpatient Medications Acetaminophen (Tylenol) 650 mg PO Q4H PRN PRN Reason: pain/fever Stop: 03/09/20 14:59 Last Admin: 02/08/20 23:39 Dose: 650 mg Documented by: Acetaminophen (Tylenol) 500 mg PO HS PRN PRN Reason: Insomnia Stop: 03/09/20 20:59 Diphenhydramine HCl (Benadryl Capsule) 25 mg PO HS PRN PRN Reason: Insomnia Stop: 03/09/20 20:59 Duloxetine HCl (Cymbalta) 20 mg PO PM MARIA LUISA Stop: 03/09/20 20:59 Last Admin: 02/08/20 21:16 Dose: 20 mg Documented by: Hydromorphone HCl (Dilaudid) 0.5 mg IV Q4H PRN PRN Reason: Severe Pain Stop: 02/22/20 14:59 Last Admin: 02/08/20 17:34 Dose: 0.5 mg Documented by: Dextrose/Sodium Chloride (D5w And Nss) 1,000 mls @ 80 mls/hr IV .[id number] [facility] Stop: 02/09/20 15:59 Last Admin: 02/09/20 03:44 Dose: 80 mls/hr Documented by: Levothyroxine Sodium (Synthroid) 75 mcg PO DAILYBB [facility] Stop: 03/10/20 06:29 Last Admin: 02/09/20 05:05 Dose: Not Given Documented by: Ondansetron HCl (Zofran) 4 mg IV Q6H PRN PRN Reason: Nausea Stop: 03/09/20 14:59 Last Admin: 02/08/20 23:34 Dose: 4 mg Documented by: Pantoprazole Sodium (Protonix) 40 mg PO DAILY [facility] Stop: 03/10/20 08:59 Last Admin: 02/09/20 09:10 Dose: Not Given Documented by:
[2020-02-09] MEDS ORDERED: SIMETHICONE 80 MG CHEW PO PRN (13:58)
--- NOTE | 2020-02-09 14:06 | Discharge Summary ---
Date of Service February 09, 2020 Admission HPI Per Admitting Provider Pt is 54 y/o F with PMH papillary thyroid cancer s/p thyroidectomy, GERD, depression, anxiety presented to ER with complaint of RUQ pain. Patient states yesterday had some mild RUQ pain after eating but then resolved. States this morning around 8 AM started with sharp right upper quadrant pain with radiation to right back that has been constant. No prior treatment today. Complains of nausea with no vomiting. Yesterday reports 5 episodes of loose stools. Patient reports feels hot, did not take temperature at home. Patient states the last couple of months has been noticing intermittent right upper quadrant pain after eating greasy foods and usually took Tylenol with relief of pain. Denies ill contacts, recent travel. Denies diaphoresis, melena, hematochezia GOMEZ, dizziness, syncope, vision changes, neck pain, CP, SOB, orthopnea, palpitations, cough, sore throat, choking, otalgia, rhinorrhea, paresthesias, weakness, extremity weakness, extremity edema, rashes, urinary symptoms. Admission Exam Per Admitting Provider General: no distress, WDWN Head: normocephalic, atraumatic Eyes: PERRL, EOM's intact, conjunctiva non-injected, anicteric ENT: normal inspection external ears, nose, mucous membranes moist Neck: supple, trachea midline Lungs: clear, no respiratory distress, no wheezing/rhonchi/rales CV: RRR, no murmur, no pretibial edema Abd: +healed surgical scars, normal BS, soft, +tenderness to palpation RUQ without rebound or guarding Ext: no cyanosis, no calf tenderness Neuro: A&O x 3, no focal deficits noted, normal affect Skin: warm, dry Principal Diagnosis Abdominal pain, now resolved, seemingly due to bloating/excessive gas/gastroenteritis Discharge Exam General: Middle-aged female lying in bed, in no distress, WDWN Head: normocephalic, atraumatic Eyes: PERRL, EOM's intact, conjunctiva non-injected, anicteric ENT: normal inspection external ears, nose, mucous membranes moist Neck: supple, trachea midline Lungs: clear, no respiratory distress, no wheezing/rhonchi/rales CV: RRR, no murmur, no pretibial edema Abd: +healed surgical scars, normal BS, soft, nondistended, nontender to palpation in any abd. quadrant Ext: no cyanosis, no calf tenderness, moves extremities spontaneously and without difficulty Neuro: A&O x 3, no focal deficits noted, normal affect Skin: warm, dry, well perfused Discharge Data Allergies Allergy/AdvReac Type Severity Reaction Status Date / Time morphine Allergy Intermediate RASH Verified 02/08/20 10:56 nitroglycerin AdvReac Intermediate SEVERELY Verified 02/08/20 10:56 LOW BLOOD PRESSURE Consultations 02/08/20 13:31 ED Decision to Admit Stat 02/08/20 15:00 Consult General Surgery Routine Ordered Studies 02/08/20 10:25 US gallbladder Stat IMPRESSION: Gallbladder sludge. No cholelithiasis or biliary ductal dilatation. 02/08/20 11:31 CT abd pelvis IV con only Stat FINDINGS: Transmission Operator topogram: Unremarkable. Lung bases: Normal heart size. No pericardial or pleural effusion. No focal infiltrate or nodule at the lung bases. Liver: Normal morphology. No liver lesion. Patent hepatic vasculature. Biliary: No intrahepatic or extrahepatic biliary ductal dilatation. Normal gallbladder. Pancreas: Normal. Spleen: Normal. Adrenal glands: Normal. Kidneys and ureters: Normal. No hydronephrosis. Bladder: Normal. Pelvic organs: Uterus surgically absent. No adnexal masses. Bowel: Postsurgical changes of appendectomy. No bowel obstruction. Peritoneal cavity: Trace of fluid in the pelvis. No free intraperitoneal gas. Lymph nodes: No enlarged lymph nodes in the abdomen or pelvis. Vasculature: Aorta and IVC patent and normal in caliber. Abdominal wall: Normal. Musculoskeletal: Normal. IMPRESSION: 1. No acute intra-abdominal pathology. Hospital Course (1) RUQ abdominal pain: Initially believed that likely due to biliary colic, or gastroenteritis - now believe most likely due to gastroenteritis/bloating/excessive gas Resolved Pt is 54 y/o F with PMH papillary thyroid cancer s/p thyroidectomy, GERD, depression, anxiety presented to ER with complaint of sharp consistent RUQ pain today. Then RUQ pain resolved and had 5 epidoses of diarrhea. Tactile fevers, reported intermittent RUQ with greasy foods x couple of months. In ER afebrile, P: 73, R: 18, BP: 120/83, 100% on RA. No leukocytosis, LFTs WNL, Normal lipase, UA: negative US Gallbladder: Gallbladder sludge. No cholelithiasis or biliary ductal dilatation. CT Abd/pelvis: No acute intra-abdominal pathology. -In ER given 1L NSS, Toradol 15mg IV, Dilaudid 0.5mg IV, Zofran 4mg IV -NPO except ice chips -IVF -Antiemetics, pain meds prn -No signs of acute cholecystitis on imaging and no leukocytosis or fever, will hold on antibiotics at this time -General surgery consult, Dr Tavares saw pt in ER, recommends HIDA scan for complete evaluation however notes no evidence of cholecystitis, symptoms not compatible with simple sludge, suspect gastroenteritis -Patient declined HIDA scan, states that she is very claustrophobic and could not undergo the study. -Today she feels well, she denies any fevers, chills, abdominal pain, nausea or vomiting. She says that she has been having a lot of gas and now after passing a lot of gas she feels back to her normal. She actually is anxious to go home. -She has been afebrile while in the hospital, and as mentioned above, imaging unrevealing, labs within normal limits as well -Discussed with the patient, that I would start her on simethicone now, and she should follow-up with her primary care doctor within 1 week. If her symptoms are recurrent she may need a GI evaluation. Patient is in agreement with this plan. (2) Thyroid cancer: S/P thyroidectomy -Continue levothyroxine (3) Depression: Anxiety -Continue duloxetine (4) GERD (gastroesophageal reflux disease): -Continue PPI Follows with Dr Kendall for routine care Total Time Total Time Spent Total Time Spent (In Minutes): 40 Total Time Includes: Examination of the Patient, Discharge Planning, Medication Reconciliation and Communication With Other Providers Discharge Plan Discharge Items Patient Disposition: Home - Self-Care Reason For Visit: RUQ PAIN Discharge Diagnosis: Abdominal pain, now resolved, seemingly due to bloating/excessive gas/gastroenteritis Condition on Discharge: Good Activity: Per Instructions section Non-emergency contact: Primary Care Provider Call non-emergency contact if: you have any medication questions and your symptoms worsen Follow-up/Referrals: Osmar Kendall MD [Primary Care Provider] - 02/20/20 1:10 pm (02/20/2020 1:10 PM Provider Osmar Kendall MD Department [facility] ) Diet: Regular Addtl Attending Provider Instructions: Please follow-up with your primary care doctor on February 20, 2020. Recommend to take simethicone for abdominal bloating/gas. If your symptoms are recurrent, please discuss with primary care doctor, as you may need further evaluation by GI. Your primary care doctor can refer you to GI if you are not already established with them. If you develop fevers or chills, or any other worsening symptoms, make sure to contact your primary physician or come for further evaluation to emergency room. Pending Studies at Discharge: No Stand-Alone Forms: [facility] [employer], Smoking Cessation Medications and DC Order Prescriptions: New simethicone [Mi-Acid Gas Relief(simethicon)] 80 mg Tablet,Chewable 80 mg PO Q6H PRN (Reason: abdominal distention) 10 Days Qty: 20 RF: 0 Continued omeprazole 20 mg Capsule,Delayed Release(Dr/Ec) 20 mg PO DAILY RF: 0 levothyroxine 75 mcg tablet 75 mcg PO DAILY RF: 0 duloxetine 20 mg capsule,delayed release(DR/EC) 20 mg PO PM RF: 0 diphenhydramine-acetaminophen [Tylenol PM Extra Strength] 25-500 mg Tablet 1 tab PO HS PRN (Reason: Insomnia) RF: 0 Discharge Orders: Discharge Order (Routine); Ordered 02/09/20 Ordered By: Allen Horton Admission Data Admit Date/Time: 02/08/20 13:54 Attending Provider: Allen Horton Admit Provider: Larry Casarez Primary Care Provider: Osmar Kendall Other Providers: Larry Casarez ; Jon Tavares
== END 2020-02-09 15:19 | disposition home or self-care (01) ==
LOC: 3N 10:08 → ED 10:08 → SUATTDRO 13:54 → 3N 14:41

== ENCOUNTER 2021-09-22 17:08 | Observation (INO) ==
[2021-09-22 19:04] LABS: Basophils # (auto) 0.01 K/uL (0-0.2); Basophils % (auto) 0.1 %; Eosinophils # (auto) 0.04 K/uL (0-0.5); Eosinophils % (auto) 0.3 %; Hematocrit (blood only) 41.2 % (37-47); Hemoglobin 14.9 g/dL (12.0-16.0); Immature Granulocytes # (auto) 0.02 K/uL (0.00-0.02); Immature Granulocytes % (auto) 0.2 %; Lymphocytes # (auto) 1.64 K/uL (1.2-3.4); Lymphocytes % (auto) 12.9 %; Mean Corpuscular Hemoglobin 31.1 pg (25-34); Mean Corpuscular Hgb Conc 36.2 g/dL (32-36); Mean Platelet Volume 10.9 fL (7.4-10.4); Monocytes # (auto) 0.78 K/uL (0.11-0.59); Monocytes % (auto) 6.1 %; Neutrophils # (auto) 10.24 K/uL (1.4-6.5); Neutrophils % (auto) 80.4 %; Platelet Count 257 K/uL (130-400); RDW Standard Deviation 37.9 fL (36.4-46.3); Red Blood Count 4.79 M/uL (4.2-5.4); White Blood Count 12.73 K/uL (4.8-10.8)
[2021-09-22 19:07] LABS: Appearance Urine Clear (Clear); Bacteria Urine Automated Negative (Negative); Bilirubin Urine Negative (Negative); Blood Urine 3+ (Negative); Color Urine Dark Yellow; Epithelial Cell Urine Auto >30 /lpf (0-5); Glucose Urine UA 1+ (Negative); Ketones Urine 2+ (Negative); Leukocyte Esterase Urine Negative (Negative); Nitrite Urine Positive (Negative); Protein Urine 1+ (Negative); RBC Urine Automated >30 /hpf (0-4); Specific Gravity Urine 1.034 (1.000-1.030); Urobilinogen Urine Negative (Negative)
[2021-09-22 19:22] LABS: Albumin Level 3.8 gm/dl (3.4-5.0); BUN Creatinine Ratio 14.7 (10-20); Calcium 9.2 mg/dl (8.5-10.1); Creatinine Clr Calc Pharmacy 62.1 ml/min; Est GFR (African American) 94.8 ml/min; Est GFR (Non-African American) 81.8 ml/min; Potassium 3.8 mmol/L (3.5-5.1)
[2021-09-22 19:25] LABS: Albumin Globulin Ratio 1.2 (0.9-2); Bilirubin,Total 1.4 mg/dl (0.2-1); Globulin 3.2 gm/dl (2.5-4.0)
[2021-09-22] MEDS ORDERED: ONDANSETRON INJ 2 MG/ML 2 ML VIAL IV STA ×2 (19:53→21:27)
[2021-09-22] MEDS ORDERED: cefTRIAXone SODIUM 1,000 MG/50 ML BAG IV STA (19:53)
[2021-09-22] MEDS ORDERED: SODIUM CHLORIDE 0.9% 1000ML 2,000 ML IV ONE (19:53)
[2021-09-22 20:50] LABS: Magnesium 2.1 mg/dl (1.8-2.4)
[2021-09-22] MEDS ORDERED: PROMETHAZINE 12.5 MG/50.5 ML BAG IV STA (22:04)
--- NOTE | 2021-09-22 22:17 | Emergency Department Note ---
Impression & Plan Abdominal pain, Vomiting, UTI (urinary tract infection) ED Provider Note NAME: MAXIMUS MCKINLEY AGE: 55 SEX: F : 1965 ARRIVES VIA: Walk-In INFORMANT: Patient ED PROVIDER(S): Rene Brownlee DO CHIEF COMPLAINT: abdominal pain and vomiting HPI: Patient is a 55-year-old female with a past medical history of appendectomy, thyroid cancer, GERD, hysterectomy that presents to the ER for for lower abdominal pain associate with nausea vomiting. Her symptoms started within the past 24 hours. She denies any headache or change in vision. No chest pain or shortness of breath. She was seen and evaluated by urology Dr. Angulo this past and had a cystoscopy with removal of a mass. She was doing well until today. She also admits to chills. She denies any recorded fevers. She is currently on Keflex which she is taking twice a day. ROS: See above HPI for pertinent positives & negatives. A total of 10 systems reviewed and were otherwise negative. PAST MEDICAL HISTORY:See Below PAST SURGICAL HISTORY:See Below FAMILY HISTORY:See Below SOCIAL HISTORY:See Below HOME MEDICATIONS:See Below ALLERGIES:See Below VITALS:See Below PHYSICAL EXAMINATION: GENERAL: Sitting up in bed, alert, well appearing, well nourished, no distress, non-toxic EYE EXAM: normal conjunctiva. PERRL and EOM's grossly intact. OROPHARYNX: no exudate, no erythema, lips, buccal mucosa, and tongue normal and mucous membranes are moist NECK: supple, no nuchal rigidity, no adenopathy, non-tender LUNGS: Clear to auscultation. Normal chest wall mechanics HEART: no murmurs, S1 normal and S2 normal ABDOMEN: abdomen soft, non-tender, normo-active bowel sounds, no masses, no rebound or guarding. UPPER EXTREMITIES: upper extremities are grossly normal. LOWER EXTREMITIES: No pitting edema. NEURO EXAM: Normal sensorium, cranial nerves II-XII grossly intact, normal speech, no gross weakness of arms, no gross weakness of legs. MEDICAL DECISION MAKING: Patient is a 55-year-old female who presents the ER for lower abdominal pain associated with nausea vomiting. She is been unable to keep anything down today. She is been having persistent dry heaving. IV was established blood was obtained. Labs show a leukocytosis of 12.7 thousand. No significant anemia. BMP was unremarkable. T bili slightly elevated at 1.4. LFTs were unremarkable. Lipase was normal. UA does show nitrites whites and red cells. There were some epithelial cells. With the nitrites question UTI. She was prescribed Keflex and question of this is covering it. Mckeon is draining. She does have some back pain which would suggest a Kane. She was given a gram of Rocephin 2 L IV fluids followed by two doses Zofran. She still had persistent nausea and dry heaving. She was given IV Phenergan. Discussed with Dr. Santos for further evaluation. Triage Nursing notes reviewed. Limited review of prior medical records performed Vital Signs: reviewed and remarkable for no significant abnormalities Differential diagnosis: Differential diagnoses includes but is not limited to gastritis, peptic ulcer disease, GERD, gallbladder disease, pancreatitis, small bowel obstruction, acute coronary syndrome, pericarditis, ischemic bowel, irritable bowel disease, irritable bowel syndrome, appendicitis, diverticulitis, malignancy, hernia, urinary tract infection, torsion, /ectopic (if female), perforation, trauma, infectious. ER treatment provided: See below Diagnostics interpreted by me: ECG: none Cardiac Monitoring: An order was placed for continuous cardiac monitoring. The monitor shows a rate of 59 with sinus rhythm. Laboratory studies: As stated above and show below. Imaging studies: See below Consultation(s): Discussed with Dr. Dangelo Nazario for further evaluation Procedures: none Critical Care: None Past Med/Surg History Medical History (Updated 09/22/21 @ 22:17 by Rene Brownlee DO) Degenerative disc disease Hematuria History of depression Hx of thyroid cancer S/p thyroidectomy Hyperlipidemia Paroxysmal atrial tachycardia No indication for treatment at this time per 03/2021 cardio note Post-surgical hypothyroidism Surgical History H/O total thyroidectomy History of appendectomy History of colonoscopy History of cystoscopy History of esophagogastroduodenoscopy (EGD) History of tonsillectomy and adenoidectomy History of tooth extraction History of total abdominal hysterectomy and bilateral salpingo-oophorectomy Nausea and vomiting after administration of anesthetic agent S/P section X 1 Status post cervical spinal fusion GOOD ROM Status post Jeny fundoplication Family History Mother Diabetes Family/Other Colorectal cancer niece- dx age 27 Hypertension Heart disease Denies family history of Ovarian cancer Breast cancer Uterine cancer Social History Smoking Status: Never smoker Second Hand Exposure: No; Hx Alcohol Use: No Hx Substance Use: No Preferred Language: Belarusian Communication Ability: Effective Electrical Inspector Required: No Beliefs That Will Affect Care: None marital status: Current Living Situation: Spouse current occupational status: employed Feels Safe at Home: Yes Assistive Devices: Denture - Upper, Denture - Lower and Glasses Allergies Allergies Allergy/AdvReac Type Severity Reaction Status Date / Time morphine Allergy Mild RASH Verified 09/22/21 20:23 nitroglycerin AdvReac Intermediate SEVERELY Verified 09/22/21 20:23 LOW BLOOD PRESSURE Home Meds Home Medications Medication Instructions Recorded Confirmed diphenhydramine 25 2 tab PO HS PRN 02/08/20 09/22/21 mg-acetaminophen 500 mg tablet (Tylenol PM Extra Strength) levothyroxine 75 mcg tablet 37.5 mcg PO WK 03/30/21 09/22/21 (Euthyrox) levothyroxine 75 mcg tablet 75 mcg PO [id number] 03/30/21 09/22/21 (Euthyrox) rosuvastatin 5 mg tablet 5 mg PO DAILY 03/30/21 09/22/21 Previous Rx's Medication Instructions Recorded phenazopyridine 200 mg tablet 200 mg PO Q8H PRN #10 tab 09/06/21 (Pyridium) cephalexin 500 mg capsule 500 mg PO BID 7 Days #14 cap 09/19/21 oxybutynin chloride 5 mg tablet 5 mg PO Q8H PRN #20 tab 09/19/21 oxycodone-acetaminophen 7.5 mg-325 1 tab PO Q8H PRN #7 tab 09/19/21 mg tablet (Percocet) Results & Data (ED) Vital Signs Vital Signs - 24 hr 09/22/21 17:15 09/22/21 18:59 09/22/21 20:55 Pulse Rate 67 70 Pulse Rate [Left Finger] 66 Pulse Rate from SpO2 Sensor 69 Respiratory Rate 18 16 17 Respiratory Effort / Characteristics Respiratory Depth Respiratory Pattern Blood Pressure 137/94 Blood Pressure [Left Arm] 106/67 Blood Pressure Mean 108 Blood Pressure Mean [Left Arm] 80 Blood Pressure Position [Left Arm] Pulse Oximetry 98 99 98 Oxygen Delivery Method Room Air Room Air Room Air Sepsis Recent Fever Within 48 Hours No Sepsis New/Unexplained Change in Mental Status N/A Sepsis Action Taken by Nursing No Action Required 09/22/21 21:00 09/22/21 21:10 09/22/21 21:20 Pulse Rate 63 60 60 Pulse Rate [Left Finger] 63 Pulse Rate from SpO2 Sensor 63 62 59 L Respiratory Rate 19 15 14 Respiratory Effort / Characteristics Non-Labored Spontaneous Respiratory Depth Normal Respiratory Pattern Regular Blood Pressure Blood Pressure [Left Arm] 123/70 Blood Pressure Mean Blood Pressure Mean [Left Arm] 87 Blood Pressure Position [Left Arm] Sitting Pulse Oximetry 96 95 96 Oxygen Delivery Method Room Air Room Air Room Air Sepsis Recent Fever Within 48 Hours Sepsis New/Unexplained Change in Mental Status Sepsis Action Taken by Nursing 09/22/21 21:30 09/22/21 21:40 09/22/21 21:50 Pulse Rate 62 67 70 Pulse Rate [Left Finger] Pulse Rate from SpO2 Sensor 63 67 70 Respiratory Rate 2 L 16 15 Respiratory Effort / Characteristics Respiratory Depth Respiratory Pattern Blood Pressure Blood Pressure [Left Arm] Blood Pressure Mean Blood Pressure Mean [Left Arm] Blood Pressure Position [Left Arm] Pulse Oximetry 97 98 96 Oxygen Delivery Method Room Air Room Air Room Air Sepsis Recent Fever Within 48 Hours Sepsis New/Unexplained Change in Mental Status Sepsis Action Taken by Nursing 09/22/21 22:00 Pulse Rate 78 Pulse Rate [Left Finger] Pulse Rate from SpO2 Sensor 76 Respiratory Rate 20 Respiratory Effort / Characteristics Respiratory Depth Respiratory Pattern Blood Pressure Blood Pressure [Left Arm] Blood Pressure Mean Blood Pressure Mean [Left Arm] Blood Pressure Position [Left Arm] Pulse Oximetry 98 Oxygen Delivery Method Room Air Sepsis Recent Fever Within 48 Hours Sepsis New/Unexplained Change in Mental Status Sepsis Action Taken by Nursing Laboratory Data Result diagrams: 09/22/21 18:55 09/22/21 18:55 Lab Results 09/22/21 09/22/21 09/22/21 Range/Units 18:55 18:55 18:55 WBC 12.73 H (4.8-10.8) K/uL RBC 4.79 (4.2-5.4) M/uL Hgb 14.9 (12.0-16.0) g/dL Hct 41.2 (37-47) % MCV 86.0 (80-100) fL MCH 31.1 (25-34) pg MCHC 36.2 H (32-36) g/dL RDW Std Deviation 37.9 (36.4-46.3) fL RDW Coeff of Liyah 12.0 (11.5-14.5) % Plt Count 257 (130-400) K/uL MPV 10.9 H (7.4-10.4) fL Immature Gran % (Auto) 0.2 % Neut % (Auto) 80.4 % Lymph % (Auto) 12.9 % [place] % (Auto) 6.1 % Eos % (Auto) 0.3 % Baso % (Auto) 0.1 % Neut # (Auto) 10.24 H (1.4-6.5) K/uL Lymph # (Auto) 1.64 (1.2-3.4) K/uL [place] # (Auto) 0.78 H (0.11-0.59) K/uL Eos # (Auto) 0.04 (0-0.5) K/uL Baso # (Auto) 0.01 (0-0.2) K/uL Immature Gran # (Auto) 0.02 (0.00-0.02) K/uL Sodium 138 (136-145) mmol/L Potassium 3.8 (3.5-5.1) mmol/L Chloride 105 (98-107) mmol/L Carbon Dioxide 28 (21-32) mmol/L Anion Gap 5.0 (3-11) BUN 12 (7-18) mg/dl Creatinine 0.81 (0.6-1.2) mg/dl Est Cr Clr Drug Dosing 62.1 ml/min Est GFR ( Amer) 94.8 ml/min Est GFR (Non-Af Amer) 81.8 ml/min BUN/Creatinine Ratio 14.7 (10-20) Glucose 158 H (70-99) mg/dl Calcium 9.2 (8.5-10.1) mg/dl Magnesium 2.1 (1.8-2.4) mg/dl Total Bilirubin 1.4 H (0.2-1) mg/dl AST 11 L (15-37) U/L ALT 15 (12-78) Alkaline Phosphatase 76 (45-117) U/L Total Protein 7.0 (6.4-8.2) gm/dl Albumin 3.8 (3.4-5.0) gm/dl Globulin 3.2 (2.5-4.0) gm/dl Albumin/Globulin Ratio 1.2 (0.9-2) Lipase 112 (73-393) U/L Urine Color Dark Yellow Urine Appearance Clear (Clear) Urine pH 6.0 (4.5-7.5) Ur Specific [place] 1.034 H (1.000-1.030) Urine Protein 1+ H (Negative) Urine Glucose (UA) 1+ H (Negative) Urine Ketones 2+ H (Negative) Urine Blood 3+ H (Negative) Urine Nitrite Positive A (Negative) Urine Bilirubin Negative (Negative) Urine Urobilinogen Negative (Negative) Ur Leukocyte Esterase Negative (Negative) Urine WBC (Auto) 5-10 H (0-5) /hpf Urine RBC (Auto) >30 H (0-4) /hpf U Hyaline Cast (Auto) 5-10 H (0-5) /lpf U Epithel Cells (Auto) >30 H (0-5) /lpf Urine Bacteria (Auto) Negative (Negative) Administered Medications Discontinued Medications Sodium Chloride (Nss 1000ml) 2,000 mls @ 999 mls/hr IV .Q2H1M ONE Stop: 09/22/21 21:53 Last Admin: 09/22/21 20:34 Dose: 999 mls/hr Documented by: [id number] Ceftriaxone Sodium (Rocephin) 1,000 mg in 50 mls @ 100 mls/hr IV NOW STA Stop: 09/22/21 20:22 Last Infusion: 09/22/21 21:45 Dose: 0 mls/hr Documented by: [id number] Admin: 09/22/21 20:52 Dose: 100 mls/hr Documented by: [id number] Ondansetron HCl (Ondansetron Inj 2 Mg/Ml 2 Ml Vial) 4 mg IV NOW STA Stop: 09/22/21 19:54 Last Admin: 09/22/21 20:34 Dose: 4 mg Documented by: [id number] Discharge Plan Visit Data Chief Complaint: Vomiting Stated Complaint: VOMITING,POLYP REMOVAL FROM BLAD 12-30 ED Provider: Rene Brownlee Discharge Problem: Abdominal pain, Vomiting, UTI (urinary tract infection) Forms Stand Alone Forms: [facility] Prescriptions Prescriptions: No Action diphenhydramine-acetaminophen [Tylenol PM Extra Strength] 25-500 mg Tablet 2 tab PO HS PRN (Reason: Insomnia) RF: 0 levothyroxine [Euthyrox] 75 mcg tablet 75 mcg PO [id number] RF: 0 levothyroxine [Euthyrox] 75 mcg tablet 37.5 mcg PO WK RF: 0 rosuvastatin 5 mg tablet 5 mg PO DAILY RF: 0 phenazopyridine [Pyridium] 200 mg tablet 200 mg PO Q8H PRN (Reason: pain) Qty: 10 RF: 0 cephalexin 500 mg capsule 500 mg PO BID 7 Days Qty: 14 RF: 0 oxycodone-acetaminophen [Percocet] 7.5-325 mg tablet 1 tab PO Q8H PRN (Reason: pain) Qty: 7 RF: 0 oxybutynin chloride 5 mg tablet 5 mg PO Q8H PRN (Reason: bladder spasms) Qty: 20 RF: 0 Referrals Referrals: Carlos Cao DO [Primary Care Provider] - Discharge Problem: Abdominal pain Qualifiers: Abdominal location: unspecified location Qualified Code(s): R10.9 - Unspecified abdominal pain Vomiting Qualifiers: Vomiting type: unspecified Nausea presence: unspecified Qualified Code(s): R11.10 - Vomiting, unspecified UTI (urinary tract infection) Qualifiers: Urinary tract infection type: acute cystitis Hematuria presence: without hematuria Qualified Code(s): N30.00 - Acute cystitis without hematuria
[2021-09-22] MEDS ORDERED: bisacodyL 10 MG SUPP PR STA (22:38)
[2021-09-22] MEDS ORDERED: CEFEPIME 2,000 MG/20 ML VIAL IV STA (22:38)
--- NOTE | 2021-09-22 22:39 | History & Physical Report ---
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 It may contain grammatical or spelling errors. Kindly contact undersigned for clarification of any documentation item in question. History of Present Illness Chief Complaint: Abdominal pain, nausea, vomiting Primary Care Provider: Carlos Cao DO History obtained from patient and records. Medical history significant for papillary thyroid cancer status post surgery, postsurgical hypothyroidism, GERD status post surgery, IBS as per records, past tobacco abuse. Last confinement January 2020 for abdominal pain attributed to bloating/excessive gas/gastroenteritis. Patient underwent cystoscopy with transurethral resection of bleeding distal urethral tumor outpatient 2 days ago. No carcinoma on pathology. 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 No hematuria or dysuria symptoms. Patient denies chest pain, S OB. Nausea emesis the whole day today. Denies inordinate narcotic analgesic intake. IV Ceftriaxone administered at the ER for UTI. Patient still uncomfortable despite initial intervention at the ER. Medical History as above Surgical History : Cystoscopy and urethral mass resection, section, esophagogastric fundoplasty, cholecystectomy, appendectomy, neck surgery, complete thyroidectomy, RAMEZ Family History : Heart disease Personal/Social history : Past tobacco abuse, no EtOH intake, cleaning work Allergies Allergy/AdvReac Type Severity Reaction Status Date / Time morphine Allergy Mild RASH Verified 09/22/21 20:23 nitroglycerin AdvReac Intermediate SEVERELY Verified 09/22/21 20:23 LOW BLOOD PRESSURE Home Medications Medication Instructions Recorded Confirmed Type diphenhydramine 25 2 tab PO HS PRN 02/08/20 09/22/21 History mg-acetaminophen 500 mg tablet (Tylenol PM Extra Strength) levothyroxine 75 mcg tablet 37.5 mcg PO WK 03/30/21 09/22/21 History (Euthyrox) levothyroxine 75 mcg tablet 75 mcg PO [id number] 03/30/21 09/22/21 History (Euthyrox) rosuvastatin 5 mg tablet 5 mg PO DAILY 03/30/21 09/22/21 History phenazopyridine 200 mg tablet 200 mg PO Q8H PRN #10 tab 09/06/21 09/22/21 Rx (Pyridium) cephalexin 500 mg capsule 500 mg PO BID 7 Days #14 cap 09/19/21 09/22/21 Rx oxybutynin chloride 5 mg tablet 5 mg PO Q8H PRN #20 tab 09/19/21 09/22/21 Rx oxycodone-acetaminophen 7.5 mg-325 1 tab PO Q8H PRN #7 tab 09/19/21 09/22/21 Rx mg tablet (Percocet) Past Med/Surg History Medical History (Updated 09/23/21 @ 02:51 by Johnson Colón MD) Degenerative disc disease Hematuria History of depression Hx of thyroid cancer S/p thyroidectomy Hyperlipidemia Paroxysmal atrial tachycardia No indication for treatment at this time per 03/2021 cardio note Post-surgical hypothyroidism Surgical History H/O total thyroidectomy History of appendectomy History of colonoscopy History of cystoscopy History of esophagogastroduodenoscopy (EGD) History of tonsillectomy and adenoidectomy History of tooth extraction History of total abdominal hysterectomy and bilateral salpingo-oophorectomy Nausea and vomiting after administration of anesthetic agent S/P section X 1 Status post cervical spinal fusion GOOD ROM Status post Jeny fundoplication Family History Mother Diabetes Family/Other Colorectal cancer niece- dx age 27 Hypertension Heart disease Denies family history of Ovarian cancer Breast cancer Uterine cancer Social History Smoking Status: Never smoker Second Hand Exposure: No; Hx Alcohol Use: No Hx Substance Use: No Preferred Language: Macedonian Communication Ability: Effective Senior Visual Designer Required: No Beliefs That Will Affect Care: None marital status: Current Living Situation: Spouse current occupational status: employed Feels Safe at Home: Yes Assistive Devices: Denture - Upper, Denture - Lower and Glasses Review of Systems Review of Systems: As per HPI, all 10 systems reviewed, all other ROS negative Physical Exam Physical Exam: GENERAL: uncomfortable, shaking and covered with blankets, slightly anxious, no respiratory distress SKIN: Normal color, warm HEENT: [place] palpebral conjunctivae, no ptosis, dry buccal mucosa NECK : Supple, no tenderness CHEST : CTA, no tenderness HEART : RRR, no obvious murmurs ABDOMEN: Some distention, minimal hypogastric tenderness EXTREMITIES : No LE swelling/tenderness, no other conspicuous deformities noted NEUROLOGIC : Coherent, no facial asymmetry, no other gross focality Results & Data Results & Data ([facility]) Vital Signs (Past 12 Hours) Vital Signs Pulse Pulse Resp BP BP Pulse Ox 09/22/21 22:30 100 H 18 100 09/22/21 22:20 105 H 23 94 09/22/21 22:10 81 98 09/22/21 22:00 78 20 98 09/22/21 21:50 70 15 96 09/22/21 21:40 67 16 98 09/22/21 21:30 62 2 L 97 09/22/21 21:20 60 14 96 09/22/21 21:10 60 15 95 09/22/21 21:00 63 63 19 123/70 96 09/22/21 20:55 70 17 98 09/22/21 18:59 66 16 106/67 99 09/22/21 17:15 67 18 137/94 98 Laboratory Results Laboratory Results WBC 12.73 K/uL (4.8-10.8) H 09/22/21 18:55 RBC 4.79 M/uL (4.2-5.4) 09/22/21 18:55 Hgb 14.9 g/dL (12.0-16.0) 09/22/21 18:55 Hct 41.2 % (37-47) 09/22/21 18:55 MCV 86.0 fL (80-100) 09/22/21 18:55 MCH 31.1 pg (25-34) 09/22/21 18:55 MCHC 36.2 g/dL (32-36) H 09/22/21 18:55 RDW Std Deviation 37.9 fL (36.4-46.3) 09/22/21 18:55 RDW Coeff of Liyah 12.0 % (11.5-14.5) 09/22/21 18:55 Plt Count 257 K/uL (130-400) 09/22/21 18:55 MPV 10.9 fL (7.4-10.4) H 09/22/21 18:55 Immature Gran % (Auto) 0.2 % 09/22/21 18:55 Neut % (Auto) 80.4 % 09/22/21 18:55 Lymph % (Auto) 12.9 % 09/22/21 18:55 [place] % (Auto) 6.1 % 09/22/21 18:55 Eos % (Auto) 0.3 % 09/22/21 18:55 Baso % (Auto) 0.1 % 09/22/21 18:55 Neut # (Auto) 10.24 K/uL (1.4-6.5) H 09/22/21 18:55 Lymph # (Auto) 1.64 K/uL (1.2-3.4) 09/22/21 18:55 [place] # (Auto) 0.78 K/uL (0.11-0.59) H 09/22/21 18:55 Eos # (Auto) 0.04 K/uL (0-0.5) 09/22/21 18:55 Baso # (Auto) 0.01 K/uL (0-0.2) 09/22/21 18:55 Immature Gran # (Auto) 0.02 K/uL (0.00-0.02) 09/22/21 18:55 Sodium 138 mmol/L (136-145) 09/22/21 18:55 Potassium 3.8 mmol/L (3.5-5.1) 09/22/21 18:55 Chloride 105 mmol/L (98-107) 09/22/21 18:55 Carbon Dioxide 28 mmol/L (21-32) 09/22/21 18:55 Anion Gap 5.0 (3-11) 09/22/21 18:55 BUN 12 mg/dl (7-18) 09/22/21 18:55 Creatinine 0.81 mg/dl (0.6-1.2) 09/22/21 18:55 Est Cr Clr Drug Dosing 62.1 ml/min 09/22/21 18:55 Est GFR ( Amer) 94.8 ml/min 09/22/21 18:55 Est GFR (Non-Af Amer) 81.8 ml/min 09/22/21 18:55 BUN/Creatinine Ratio 14.7 (10-20) 09/22/21 18:55 Glucose 158 mg/dl (70-99) H 09/22/21 18:55 Calcium 9.2 mg/dl (8.5-10.1) 09/22/21 18:55 Magnesium 2.1 mg/dl (1.8-2.4) 09/22/21 18:55 Total Bilirubin 1.4 mg/dl (0.2-1) H 09/22/21 18:55 AST 11 U/L (15-37) L 09/22/21 18:55 ALT 15 (12-78) 09/22/21 18:55 Alkaline Phosphatase 76 U/L (45-117) 09/22/21 18:55 Total Protein 7.0 gm/dl (6.4-8.2) 09/22/21 18:55 Albumin 3.8 gm/dl (3.4-5.0) 09/22/21 18:55 Globulin 3.2 gm/dl (2.5-4.0) 09/22/21 18:55 Albumin/Globulin Ratio 1.2 (0.9-2) 09/22/21 18:55 Lipase 112 U/L (73-393) 09/22/21 18:55 Urine Color Dark Yellow 09/22/21 18:55 Urine Appearance Clear (Clear) 09/22/21 18:55 Urine pH 6.0 (4.5-7.5) 09/22/21 18:55 Ur Specific [place] 1.034 (1.000-1.030) H 09/22/21 18:55 Urine Protein 1+ (Negative) H 09/22/21 18:55 Urine Glucose (UA) 1+ (Negative) H 09/22/21 18:55 Urine Ketones 2+ (Negative) H 09/22/21 18:55 Urine Blood 3+ (Negative) H 09/22/21 18:55 Urine Nitrite Positive (Negative) A 09/22/21 18:55 Urine Bilirubin Negative (Negative) 09/22/21 18:55 Urine Urobilinogen Negative (Negative) 09/22/21 18:55 Ur Leukocyte Esterase Negative (Negative) 09/22/21 18:55 Urine WBC (Auto) 5-10 /hpf (0-5) H 09/22/21 18:55 Urine RBC (Auto) >30 /hpf (0-4) H 09/22/21 18:55 U Hyaline Cast (Auto) 5-10 /lpf (0-5) H 09/22/21 18:55 U Epithel Cells (Auto) >30 /lpf (0-5) H 09/22/21 18:55 Urine Bacteria (Auto) Negative (Negative) 09/22/21 18:[address] abdomen pelvis initial read: FINDINGS: The lung bases are clear. Previous cholecystectomy. No abnormalities noted of the liver, spleen or pancreas. No adrenal enlargement. No acute abnormalities noted of the kidneys. No evidence of bowel obstruction. No free intraperitoneal air or fluid. Foleycatheter within a decompressed bladder. IMPRESSION:No acute findings in the abdomen or pelvis.
[2021-09-22 22:41] LABS: Thyroid Stimulating Hormone 0.494 uIu/ml (0.300-4.500)
[2021-09-22] MEDS ORDERED: SODIUM CHLORIDE 0.9% 1000ML 1,000 ML IV ONE (22:44)
[2021-09-23] MEDS ORDERED: OPTIRAY 320 100ml IV ONE (00:17)
[2021-09-23] MEDS ORDERED: KETOROLAC TROMETHAMINE 15 MG/ML VIAL IV PRN (00:36)
[2021-09-23] MEDS ORDERED: OXYBUTYNIN CHLORIDE 5 MG TAB PO PRN (00:36)
[2021-09-23] MEDS ORDERED: ACETAMINOPHEN 325 MG TAB PO PRN (00:36)
[2021-09-23] MEDS ORDERED: PROMETHAZINE HCL 12.5 MG in SODIUM CHLORIDE 0.9% 50 ML IV PRN (00:36)
[2021-09-23] MEDS ORDERED: POLYETHYLENE (MIRALAX) 17 GM PACK PO PRN (00:36)
[2021-09-23] MEDS ORDERED: PHENAZOPYRIDINE HCL 200 MG TAB PO PRN (00:36)
[2021-09-23] MEDS ORDERED: IBUPROFEN 200 MG TAB PO PRN (00:36)
[2021-09-23] MEDS ORDERED: LACTULOSE SYRUP 30 GM/45 ML UDP PO STA (01:45)
[2021-09-23] MEDS: DOCUSATE SODIUM/SENNA 50/8.6MG TAB PO SCH ×3 (01:56→19:57)
[2021-09-23 05:31] LABS: Basophils # (auto) 0.02 K/uL (0-0.2); Basophils % (auto) 0.2 %; Eosinophils # (auto) 0.04 K/uL (0-0.5); Eosinophils % (auto) 0.3 %; Hematocrit (blood only) 38.1 % (37-47); Immature Granulocytes # (auto) 0.03 K/uL (0.00-0.02); Immature Granulocytes % (auto) 0.3 %; Lymphocytes % (auto) 17.5 %; Mean Corpuscular Hemoglobin 29.5 pg (25-34); Mean Corpuscular Hgb Conc 34.1 g/dL (32-36); Mean Corpuscular Volume 86.4 fL (80-100); Monocytes # (auto) 1.01 K/uL (0.11-0.59); Monocytes % (auto) 8.8 %; Neutrophils # (auto) 8.33 K/uL (1.4-6.5); Neutrophils % (auto) 72.9 %; Platelet Count 243 K/uL (130-400); RDW Coefficient of Variation 12.3 % (11.5-14.5); Red Blood Count 4.41 M/uL (4.2-5.4); White Blood Count 11.43 K/uL (4.8-10.8)
[2021-09-23 06:08] LABS: BUN Creatinine Ratio 12.3 (10-20); Calcium 8.8 mg/dl (8.5-10.1); Creatinine Clr Calc Pharmacy 65.3 ml/min; Est GFR (African American) 100.7 ml/min; Est GFR (Non-African American) 86.9 ml/min; Potassium 3.5 mmol/L (3.5-5.1)
[2021-09-23] MEDS: LEVOTHYROXINE SODIUM 75 MCG TABLET PO SCH (06:17)
[2021-09-23] MEDS ORDERED: CEFEPIME 2,000 MG/20 ML VIAL ONE (07:27)
[2021-09-23 07:39] LABS: Estimated Average Glucose 105 mg/dl; Hemoglobin A1C 5.3 % (4.5-5.6)
[2021-09-23] MEDS: ENOXAPARIN INJ 40 MG/0.4 ML SYR SQ SCH (07:44)
[2021-09-23] MEDS: ROSUVASTATIN CALCIUM 5 MG TAB PO SCH (07:44)
[2021-09-23] MEDS: CEFEPIME 2,000 MG in SYRINGE 0 ML IV SCH ×2 (07:44→17:47)
--- NOTE | 2021-09-23 08:26 | CT Scan Report ---
CT abd pelvis IV con only CLINICAL HISTORY: abd pain nv TECHNIQUE: Helical axial images of the abdomen and pelvis were obtained and displayed. Automated dose lowering techniques and/or adjustment according to patient size were utilized for this exam. This e xam was performed with intravenous contrast. COMPARISON: Comparison is made to CT abdomen pelvis 09/06/2021 FINDINGS: Lower chest: No acute abnormality Liver: Unremarkable. No focal lesions are seen. Gallbladder and biliary tree: Patient is status post cholecystectomy. No intra- or extrahepatic bilia ry ductal dilation. Pancreas: Unremarkable, no focal lesions. Spleen: Unremarkable. Adrenals: Unremarkable. Kidneys and ureters: Unremarkable. Bladder: Mckeon catheter is seen. Reproductive organs: Unremarkable. Bowel: Patient is status post appendectomy. There is a hiatal hernia with the appearance of complicat ion. Lymph nodes Retroperitoneal: Unremarkable. Mesenteric: Unremarkable. Pelvic: Unremarkable. Peritoneum: Normal Vessels: Unremarkable. Abdominal wall: Unremarkable. Bones: Unremarkable. IMPRESSION: No acute abnormalities. ACT 112: Negative or not required by law. Electronically signed by: Jatin Dc M.D. 09/23/2021 8:25 AM
--- NOTE | 2021-09-23 12:27 | Hospitalist Progress Note ---
Date of Service September 23, 2021 Assessment & Plan (1) Sepsis: Plan: Improved symptoms and clinical picture on broad spectrum antibiotics. UCx is negative with blood cultures still pending. Cont cefepime. Appreciate urology perspective as patient wants catheter removed. (2) Abdominal pain: Plan: resolved with treatment overnight, residual suprapubic discomfort the patient feels is related to the mechanical pressure from the catheter. CT abd/pel with IV contrast was unremarkable. (3) UTI (urinary tract infection): Plan: Ruled out, cont cefepime in setting of sepsis on admission with blood cultures pending. (4) Post-operative state: Plan: recent removal of a bleeding uretheral mass on 09/[address] Angulo. Consulting them now as patient is uncomfortable and is having a post-operative complication. (5) DVT prophylaxis: Plan: Lovenox Full Code Dispo-to home when medically improved/stable and cultures are negative, likely tomorrow. Dorie Manning DO [facility] Hospitalist. Admission and Anticipated Discharge Date Admission Date: September 22, 2021 Subjective 55 yo female presented with acute abdominal pain and nausea likely 2/2 UTI as a complication of indwelling urinary catheter s/p transuretheral resection of a bleeding urethral mass performed on 09/19. There is no gross hematuria at this time and she is eating, afebrile, reports a resolution of chills and posterior flank discomfort that was present on both sides. She still reports some suprapubic discomfort she feels is related to the catheter which she is requesting to have taken out. Otherwise denies any chest pain, SOB, nausea or other issues. Review of Systems Review of Systems: All systems were reviewed and negative except as indicated above. Physical Exam Physical Exam: CONSTITUTIONAL: WNWD, vitals as above, generally well- appearing, NAD EYES: normal conjunctivae, no scleral icterus, ENT: external ear and nose normal, MMM NECK: trachea midline, RESPIRATORY: clear to auscultation bilaterally, no crackles, rales or wheezes, normal respiratory effort CARDIOVASCULAR: regular rate and rhythm, S1 and 2 heard without murmurs, gallops or rubs, no JVD, no peripheral edema GASTROINTESTINAL: normal bowel sounds, soft, slight suprapubic tenderness, ND, no guarding. No CVA tenderness MUSCULOSKELETAL: strength 5/5 throughout, head is normocephalic and atraumatic, SKIN: warm and dry, NEUROLOGIC: No facial palsy, no dysarthria. CN 2-12 grossly intact, no sensory deficit, normal cognition, normal speech, no tremor. No gross focal deficits : Mckeon in place draining light yellow urine. PSYCHIATRIC: alert cooperative and oriented to person, place and time. Euthymic mood, makes good eye contact, language grossly intact, recent and remote memory grossly intact. Results & Data Results & Data ([facility]) Vital Signs (Past 12 Hours) Vital Signs Pulse Resp BP Pulse Ox Pulse Ox 09/23/21 09:53 76 20 111/66 98 09/23/21 07:48 74 20 111/66 98 09/23/21 06:27 75 16 112/67 96 09/23/21 04:40 74 18 111/66 96 09/23/21 02:46 70 16 115/64 97 09/23/21 02:00 88 18 115/68 97 09/23/21 01:11 82 16 126/88 96 09/23/21 01:10 96 Laboratory Results Short CBC 09/22/21 09/23/21 Range/Units 18:55 05:03 WBC 12.73 H 11.43 H (4.8-10.8) K/uL Hgb 14.9 13.0 (12.0-16.0) g/dL Hct 41.2 38.1 (37-47) % Plt Count 257 243 (130-400) K/uL BMP 09/22/21 09/23/21 18:55 05:03 Sodium 138 143 Potassium 3.8 3.5 Chloride 105 110 H Carbon Dioxide 28 26 BUN 12 9 Creatinine 0.81 0.77 Glucose 158 H 113 H Calcium 9.2 8.8 Liver Function 09/22/21 Range/Units 18:55 Total Bilirubin 1.4 H (0.2-1) mg/dl AST 11 L (15-37) U/L ALT 15 (12-78) Alkaline Phosphatase 76 (45-117) U/L Albumin 3.8 (3.4-5.0) gm/dl Urine 09/22/21 Range/Units 18:55 Urine Color Dark Yellow Urine Appearance Clear (Clear) Urine pH 6.0 (4.5-7.5) Ur Specific [place] 1.034 H (1.000-1.030) Urine Protein 1+ H (Negative) Urine Glucose (UA) 1+ H (Negative) Diagnostic Findings Abdomen/Pelvis CT 09/22/21 22:38 CT abd pelvis IV con only CLINICAL HISTORY: abd pain nv TECHNIQUE: Helical axial images of the abdomen and pelvis were obtained and displayed. Automated dose lowering techniques and/or adjustment according to patient size were utilized for this exam. This exam was performed with intravenous contrast. COMPARISON: Comparison is made to CT abdomen pelvis 09/06/2021 FINDINGS: Lower chest: No acute abnormality Liver: Unremarkable. No focal lesions are seen. Gallbladder and biliary tree: Patient is status post cholecystectomy. No intra- or extrahepatic biliary ductal dilation. Pancreas: Unremarkable, no focal lesions. Spleen: Unremarkable. Adrenals: Unremarkable. Kidneys and ureters: Unremarkable. Bladder: Mckeon catheter is seen. Reproductive organs: Unremarkable. Bowel: Patient is status post appendectomy. There is a hiatal hernia with the appearance of complication. Lymph nodes Retroperitoneal: Unremarkable. Mesenteric: Unremarkable. Pelvic: Unremarkable. Peritoneum: Normal Vessels: Unremarkable. Abdominal wall: Unremarkable. Bones: Unremarkable. IMPRESSION: No acute abnormalities. ACT 112: Negative or not required by law. Electronically signed by: Jatin Dc M.D. 09/23/2021 8:25 AM Medications Administered Current Inpatient Medications Acetaminophen (Acetaminophen 325 Mg Tab) 650 mg PO Q4H PRN PRN Reason: Pain or Fever Stop: 10/23/21 00:35 Enoxaparin Sodium (Enoxaparin Inj 40 Mg/0.4 Ml Syr) 40 mg SQ QAM [facility] Stop: 10/23/21 08:59 Last Admin: 09/23/21 07:44 Dose: 40 mg Documented by: Cefepime HCl 2,000 mg/ Syringe 20 mls @ 5 mls/min IV Q8H [facility]; Protocol Stop: 10/03/21 07:59 Last Admin: 09/23/21 07:44 Dose: 5 mls/min Documented by: Promethazine HCl 12.5 mg/ (Sodium Chloride) 50.5 mls @ 202 mls/hr IV Q6H PRN PRN Reason: Nausea And Vomiting Stop: 10/23/21 00:35 Ibuprofen (Ibuprofen 200 Mg Tab) 200 mg PO Q6H PRN PRN Reason: Mild Pain Stop: 10/23/21 00:35 Ketorolac Tromethamine (Ketorolac Tromethamine 15 Mg/Ml Vial) 15 mg IV Q6H PRN PRN Reason: Pain Stop: 09/28/21 00:35 Levothyroxine Sodium (Levothyroxine Sodium 75 Mcg Tablet) 75 mcg PO SuMoTuWeThSa [facility] Stop: 10/23/21 06:29 Last Admin: 09/23/21 06:17 Dose: 75 mcg Documented by: Levothyroxine Sodium (Levothyroxine Sodium 75 Mcg Tablet) 37.5 mcg PO Fr [facility] Stop: 10/27/21 05:59 Oxybutynin Chloride (Oxybutynin Chloride 5 Mg Tab) 5 mg PO Q8H PRN PRN Reason: bladder spasms Stop: 10/23/21 00:35 Phenazopyridine HCl (Phenazopyridine Hcl 200 Mg Tab) 200 mg PO Q8H PRN PRN Reason: pain Stop: 10/23/21 00:35 Polyethylene Glycol (Polyethylene (Miralax) 17 Gm Pack) 17 gm PO DAILY PRN PRN Reason: Constipation Stop: 10/23/21 00:35 Rosuvastatin Calcium (Rosuvastatin Calcium 5 Mg Tab) 5 mg PO DAILY [facility] Stop: 10/23/21 08:59 Last Admin: 09/23/21 07:44 Dose: 5 mg Documented by: Senna/Docusate Sodium (Docusate Sodium/Senna 50/8.6mg Tab) 1 tab PO BID [facility] Stop: 10/23/21 00:35 Last Admin: 09/23/21 07:44 Dose: 1 tab Documented by: (1) Abdominal pain Abdominal location: unspecified location Qualified Code(s): R10.9 - Unspecified abdominal pain (2) UTI (urinary tract infection) Hematuria presence: without hematuria Urinary tract infection type: acute cystitis Qualified Code(s): N30.00 - Acute cystitis without hematuria
--- NOTE | 2021-09-23 12:48 | Urology Consultation ---
Date of Consultation September 23, 2021 Assessment & Plan (1) Abdominal pain: (2) Nausea: (3) UTI (urinary tract infection): 55 y/o female who is s/p recent urological procedure admitted with presumed sepsis/UTI and abdominal pain - Plan of care and hospital course reviewed with Dr. Angulo, on-call urologist. - Patient is s/p Cystoscopy with Transurethral resection of urethral mass on 09/19/[address] Angulo. - VSS, non-toxic appearing. No documented temperature on chart, pt denied fever. - Labs reviewed - Wbc 11.43, Hemoglobin and creatinine normal. - Urine culture preliminary no growth; Blood cultures pending - Continues on IV Cefepime, follow cultures. - Mckeon catheter intact, draining clear yellow urine. - Given recent procedure, she will need to maintain the Mckeon catheter for continued healing until outpatient follow-up with urology. - Recommend continuing prn Oxybutynin, prn Pyridium, and prn pain control. Consider addition of Belladonna supp. as needed. - Continue supportive care and ensure she continues to have regular bowel movements. - Will arrange outpatient follow-up with urology. - Expected clinical course reviewed with patient, all questions were answered. - will sign-off, please contact us with any further questions or concerns. History of Present Illness Reason for Consultation: post op abdominal pain, nausea Requesting Physician: Dr. Manning Attending Physician: Dorie Manning, History of Present Illness 55yo F with a past medical history of appendectomy, thyroid cancer, GERD, hysterectomy who presented to the ER with acute abdominal pain and associated nausea vomiting and was admitted for presumed sepsis, possibly secondary to complicated UTI and abdominal pain. She is s/p Cystoscopy with Transurethral resection of urethral mass on 09/19/[address] Angulo and currently has an indwelling Mckeon catheter. A CT abdomen pelvis was performed on admission and was unremarkable. Urinalysis with 3+blood, positive nitrite, negative leukocytes, 5-10WBC, >30 RBC, >30 Epis, negative bacteria. She was treated with IVF and IV antibiotics and admitted for continued care. Urine culture is preliminary no growth, final pending. Blood cultures pending. Vitals stable. No documented temperature in chart. White count with mild elevation to 11.43, hemoglobin and creatinine normal. She continues on IV Cefepime. Urology consulted for postop abdominal pain and nausea. Per chart review, patient reports suprapubic discomfort and feels this is related to the Mckeon catheter and requested to have the catheter removed. CTAP IMPRESSION: No acute abnormalities. Pt examined at bedside in the ED. Awake, resting in bed on arrival. No acute distress. She reports an improvement in pain since admission. Still with suprapubic discomfort, rates pain 4/10 at present, and feels this is related to the catheter. Mckeon intact, draining clear yellow urine at present. She denies fevers or chills. No nausea at present. Denies vomiting. Tolerating clear liquid diet. Pt reports she had a BM today, which was her first since her procedure. She was taking narcotic pain medication at home following her procedure. She was also on Keflex BID. Offered no additional complaints or concerns at time of exam. Allergies Allergy/AdvReac Type Severity Reaction Status Date / Time morphine Allergy Mild RASH Verified 09/22/21 20:23 nitroglycerin AdvReac Intermediate SEVERELY Verified 09/22/21 20:23 LOW BLOOD PRESSURE Home Medications Medication Instructions Recorded Confirmed Type diphenhydramine 25 2 tab PO HS PRN 02/08/20 09/22/21 History mg-acetaminophen 500 mg tablet (Tylenol PM Extra Strength) levothyroxine 75 mcg tablet 37.5 mcg PO WK 03/30/21 09/22/21 History (Euthyrox) levothyroxine 75 mcg tablet 75 mcg PO 6XWK 03/30/21 09/22/21 History (Euthyrox) rosuvastatin 5 mg tablet 5 mg PO DAILY 03/30/21 09/22/21 History phenazopyridine 200 mg tablet 200 mg PO Q8H PRN #10 tab 09/06/21 09/22/21 Rx (Pyridium) cephalexin 500 mg capsule 500 mg PO BID 7 Days #14 cap 09/19/21 09/22/21 Rx oxybutynin chloride 5 mg tablet 5 mg PO Q8H PRN #20 tab 09/19/21 09/22/21 Rx oxycodone-acetaminophen 7.5 mg-325 1 tab PO Q8H PRN #7 tab 09/19/21 09/22/21 Rx mg tablet (Percocet) Patient History Medical History Degenerative disc disease Hematuria History of depression Hx of thyroid cancer S/p thyroidectomy Hyperlipidemia Paroxysmal atrial tachycardia No indication for treatment at this time per 03/2021 cardio note Post-surgical hypothyroidism Surgical History H/O total thyroidectomy History of appendectomy History of colonoscopy History of cystoscopy History of esophagogastroduodenoscopy (EGD) History of tonsillectomy and adenoidectomy History of tooth extraction History of total abdominal hysterectomy and bilateral salpingo-oophorectomy Nausea and vomiting after administration of anesthetic agent S/P section X 1 Status post cervical spinal fusion GOOD ROM Status post Jeny fundoplication Family History Mother Diabetes Family/Other Colorectal cancer niece- dx age 27 Hypertension Heart disease Denies family history of Ovarian cancer Breast cancer Uterine cancer Social History Smoking Status: Never smoker Second Hand Exposure: No; Hx Alcohol Use: No Hx Substance Use: No Preferred Language: Romansh Communication Ability: Effective Asphalt Spreader Required: No Beliefs That Will Affect Care: None marital status: Current Living Situation: Spouse current occupational status: employed Feels Safe at Home: Yes Assistive Devices: Denture - Upper, Denture - Lower and Glasses Review of Systems Review of Systems: All systems reviewed & are unremarkable except as noted in HPI & below Physical Exam Constitutional: well developed; no acute distress and not ill appearing Neck: normal visual inspection Respiratory: normal respiratory effort and able to speak in complete sentences; no labored breathing and no audible wheezes Gastrointestinal (Abdomen): Inspection/Auscultation: abdomen normal to inspection; abdomen not distended Percussion/Palpation: + abdomen tender (mild suprapubic tenderness with palpation) and abdomen soft; no guarding and abdomen not rigid Musculoskeletal: Head/Neck/Chest: normocephalic Skin: No visible rashes or lesions to exposed skin areas Neurologic: moves all extremities and awake Psychiatric: Orientation: alert, oriented x 3 and cooperative Genitourinary: Mckeon catheter intact Results & Data ([facility]) Vital Signs (Past 12 Hours) Vital Signs Pulse Resp BP Pulse Ox Pulse Ox 09/23/21 09:53 76 20 111/66 98 09/23/21 07:48 74 20 111/66 98 09/23/21 06:27 75 16 112/67 96 09/23/21 04:40 74 18 111/66 96 09/23/21 02:46 70 16 115/64 97 09/23/21 02:00 88 18 115/68 97 09/23/21 01:11 82 16 126/88 96 09/23/21 01:10 96 PG Care Time/CCT Total # of Minutes Spent Total Time Spent with Patient: Total time spent is greater than 50% in coordination of care (as documented) at patient's floor/unit and/or counseling patient: Coding Level of Care Code 78943 Inpt Consult Level 3 Diagnoses Abdominal pain R10.9 Abdominal location: unspecified location Nausea R11.0 UTI (urinary tract infection) N30.00 Hematuria presence: without hematuria Urinary tract infection type: acute cystitis (1) UTI (urinary tract infection) Hematuria presence: without hematuria Urinary tract infection type: acute cystitis Qualified Code(s): N30.00 - Acute cystitis without hematuria (2) Abdominal pain Abdominal location: unspecified location Qualified Code(s): R10.9 - Unspecified abdominal pain
[2021-09-24] MEDS: CEFEPIME 2,000 MG in SYRINGE 0 ML IV SCH ×2 (00:17→08:25)
[2021-09-24] MEDS: LEVOTHYROXINE SODIUM 75 MCG TABLET PO SCH (06:18)
[2021-09-24 08:43] LABS: Hematocrit (blood only) 40.3 % (37-47); Mean Corpuscular Hgb Conc 34.7 g/dL (32-36); Mean Corpuscular Volume 86.3 fL (80-100); Mean Platelet Volume 10.8 fL (7.4-10.4); Platelet Count 256 K/uL (130-400); RDW Coefficient of Variation 12.2 % (11.5-14.5); RDW Standard Deviation 38.5 fL (36.4-46.3); Red Blood Count 4.67 M/uL (4.2-5.4); White Blood Count 7.89 K/uL (4.8-10.8)
[2021-09-24 09:11] LABS: BUN Creatinine Ratio 13.7 (10-20); Calcium 8.7 mg/dl (8.5-10.1); Creatinine Clr Calc Pharmacy 77.3 ml/min; Est GFR (African American) 115.8 ml/min; Est GFR (Non-African American) 99.9 ml/min; Potassium 3.7 mmol/L (3.5-5.1)
[2021-09-24] MEDS: DOCUSATE SODIUM/SENNA 50/8.6MG TAB PO SCH (10:08)
[2021-09-24] MEDS: ENOXAPARIN INJ 40 MG/0.4 ML SYR SQ SCH (10:40)
[2021-09-24] MEDS: ROSUVASTATIN CALCIUM 5 MG TAB PO SCH (10:40)
--- NOTE | 2021-09-24 17:01 | Discharge Summary ---
Date of Service September 24, 2021 Admission HPI Per Admitting Provider History obtained from patient and records. Medical history significant for papillary thyroid cancer status post surgery, postsurgical hypothyroidism, GERD status post surgery, IBS as per records, past tobacco abuse. Last confinement January 2020 for abdominal pain attributed to bloating/excessive gas/gastroenteritis. Patient underwent cystoscopy with transurethral resection of bleeding distal urethral tumor outpatient 2 days ago. No carcinoma on pathology. 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 No hematuria or dysuria symptoms. Patient denies chest pain, S OB. Nausea emesis the whole day today. Denies inordinate narcotic analgesic intake. IV Ceftriaxone administered at the ER for UTI. Patient still uncomfortable despite initial intervention at the ER. Admission Exam Per Admitting Provider GENERAL: uncomfortable, shaking and covered with blankets, slightly anxious, no respiratory distress SKIN: Normal color, warm HEENT: [place] palpebral conjunctivae, no ptosis, dry buccal mucosa NECK : Supple, no tenderness CHEST : CTA, no tenderness HEART : RRR, no obvious murmurs ABDOMEN: Some distention, minimal hypogastric tenderness EXTREMITIES : No LE swelling/tenderness, no other conspicuous deformities noted NEUROLOGIC : Coherent, no facial asymmetry, no other gross focality Principal Diagnosis Abdominal pain, nausea, vomiting Discharge Exam Constitutional WD/WN, vitals as above no acute distress Respiratory normal respiratory effort, lungs clear to auscultation Cardiovascular Rate/Rhythm: regular rate and regular rhythm Vessels: normal peripheral pulses Extremities: no edema Gastrointestinal (Abdomen) Percussion/Palpation: abdomen soft; abdomen nontender Skin no rashes, warm and dry Neurologic no focal motor deficits Psychiatric A+Ox3, euthymic affect Genitourinary no CVA tenderness Mckeon in place draining clear yellow urine Discharge Data Allergies Allergy/AdvReac Type Severity Reaction Status Date / Time morphine Allergy Mild RASH Verified 09/22/21 20:23 nitroglycerin AdvReac Intermediate SEVERELY Verified 09/22/21 20:23 LOW BLOOD PRESSURE Consultations Urology Ordered Studies 09/22/2021 CT ABD/pelvis IMPRESSION: No acute abnormalities. Hospital Course (1) Abdominal pain: 55-year-old female with medical history significant for papillary thyroid cancer status post surgery, postsurgical hypothyroidism, GERD status post surgery, IBS as per records, past tobacco abuse who presents to the ED for evaluation of lower abdominal pain and chills. Patient underwent cystoscopy with transurethral resection of bleeding distal urethral tumor as an outpatient on 09/19/2021 and Mckeon catheter remains in place. CT ABD/pelvis on admission was unremarkable for acute findings. Presenting WBC 12.7K, improved to 7.8 on the day of discharge. Patient remained afebrile throughout hospitalization. Patient was empirically placed on cefepime for possible UTI. Blood and urine cultures were negative. Patient improved with supportive care with IVF, pain and nausea control. Abdominal pain and nausea may be due to recent surgery, Mckeon catheter discomfort, use of narcotics. Urology evaluated the patient and recommended that Mckeon catheter remain in place and the patient should continue oxybutynin, Pyridium for pain control. On the day of discharge, patient is feeling well and eager to be discharged. She is hemodynamically stable. Total Time Total Time Spent Total Time Spent (In Minutes): 35 Discharge Plan Discharge Items Patient Disposition: Home - Self-Care Reason For Visit: Abdominal Pain, Vomiting Discharge Diagnosis: Possible Infection, ruled out Activity: Resume your previous activity Non-emergency contact: Primary Care Provider and Urologist Call non-emergency contact if: you have any medication questions, your symptoms worsen, your pain is not controlled and you have a fever Follow-up/Referrals: Narciso Nicole DO [Outside Practitioners] - 09/27/21 11:20 am Diet: Heart Healthy Addtl Attending Provider Instructions: You came to the hospital for evaluation of abdominal pain and nausea. Given your recent urologic procedure, there was concern for possible infection. You had blood cultures and urine cultures that were negative for bacteria. You received IV antibiotics while in the hospital, but will not need antibiotics at discharge. Maintain Mckeon catheter per urology instructions. Urology is arranging for a follow-up appointment with their office. An appointment has been made for you for your PCP. Continue taking all other medications as prescribed. It was a pleasure taking care of you. If you need to reach a member of the [facility] Hospitalist team at [facility], please call [phone]. LISA Gutierrez Pending Studies at Discharge: No Stand-Alone Forms: My [facility], Smoking Cessation Medications and DC Order Prescriptions: Continued diphenhydramine-acetaminophen [Tylenol PM Extra Strength] 25-500 mg Tablet 2 tab PO HS PRN (Reason: Insomnia) RF: 0 levothyroxine [Euthyrox] 75 mcg tablet 75 mcg PO 6XWK RF: 0 levothyroxine [Euthyrox] 75 mcg tablet 37.5 mcg PO WK RF: 0 rosuvastatin 5 mg tablet 5 mg PO DAILY RF: 0 phenazopyridine [Pyridium] 200 mg tablet 200 mg PO Q8H PRN (Reason: pain) Qty: 10 RF: 0 oxycodone-acetaminophen [Percocet] 7.5-325 mg tablet 1 tab PO Q8H PRN (Reason: pain) Qty: 7 RF: 0 oxybutynin chloride 5 mg tablet 5 mg PO Q8H PRN (Reason: bladder spasms) Qty: 20 RF: 0 Discontinued cephalexin 500 mg capsule 500 mg PO BID 7 Days Qty: 14 RF: 0 Discharge Orders: Discharge Order (Routine); Ordered 09/24/21 Ordered By: Marilyn Mccoy/Other Patient Handouts: Indwelling Urinary Catheter Dc, Leg Bag Care Dc Admission Data Admit Date/Time: 09/22/21 22:42 Attending Provider: Dorie Manning Admit Provider: oJhnson Colón Primary Care Provider: Carlos Cao Other Providers: Johnson Colón ; Cachorro Angulo Other Interventions: Discharge Summary Assessment (RN) Last Done: 09/24/21 11:31
[2021-09-27] MEDS ORDERED: LEVOTHYROXINE SODIUM 75 MCG TABLET PO SCH (06:00)
== END 2021-09-24 12:50 | disposition home or self-care (01) ==
LOC: ED 17:08 → INTOOBSV 22:42 → EDINP 22:42 → 3E 09-23 11:34